=== PATIENT | male | born 1960 | race African-American/Black ===

== ENCOUNTER 2020-01-23 17:38 | Outpatient (REF) | payer MEDICARE, MEDICAID, SELFPAY | END 2020-01-23 17:39 | disposition home or self-care (01) | LOC: HO.LAB 17:38 | PROVIDERS: PCP Family Medicine; Visit Provider Internal Medicine | DX: Z20.828 Contact with and (suspected) exposure to other viral communicable diseases (principal) | CPT/HCPCS: U0003 ==

== ENCOUNTER 2020-01-29 11:24 | Outpatient (REF) | payer MEDICARE, SELFPAY | END 2020-01-29 11:25 | disposition home or self-care (01) | LOC: HO.LAB 11:24 | PROVIDERS: PCP Family Medicine; Visit Provider Internal Medicine | DX: Z20.828 Contact with and (suspected) exposure to other viral communicable diseases (principal) | CPT/HCPCS: C9803; U0003 ==

== ENCOUNTER 2020-02-05 11:14 | Outpatient (REF) | payer MEDICARE, SELFPAY | END 2020-02-05 11:15 | disposition home or self-care (01) | LOC: HO.LAB 11:14 | PROVIDERS: Visit Provider Internal Medicine | DX: Z20.828 Contact with and (suspected) exposure to other viral communicable diseases (principal) | CPT/HCPCS: C9803; U0003 ==

== ENCOUNTER 2020-02-24 13:23 | Emergency (ER) | payer MEDICARE, MEDICAID, SELFPAY ==
[2020-02-24 14:07] VITALS: BP 151/89; PULSE 67; RESP 16; TEMP 36.7; O2SAT 98; BMI 33.2
--- NOTE | 2020-02-24 14:21 | ED.GENADULT ---
HPI - General Adult General Chief complaint: General Medical Stated complaint: STD check Time Seen by Provider: 02/24/20 13:47 Source: patient Mode of arrival: ambulatory Limitations: no limitations History of Present Illness HPI narrative: Patient presents to ED for penile discharge. patient states he had unprotected sex last week and then the past 3 days notice some dysuria and penile discharge. Patient denies ever having testicular pain, abdominal pain, penile lesions, flank pain, fever, chills, hematuria, nausea, or vomiting. Related Data Allergies Allergy/AdvReac Type Severity Reaction Status Date / Time risperidone [From RISPERDAL] Allergy Severe SHORTNESS Unverified 12/11/19 19:43 OF BREATH Review of Systems Review of Systems: Yes all other systems are reviewed and are negative Constitutional: Constitutional: Reports as per HPI and Reports no additional constitutional complaints Eyes: Eyes: Reports as per HPI and Reports no additional eye complaints ENT: Reports system reviewed and no additional complaints, except as documented and Reports as per HPI Cardiovascular: Cardiovascular: Reports as per HPI and Reports no additional cardiovascular complaints Respiratory: Respiratory: Reports as per HPI and Reports no additional respiratory complaints Gastrointestinal: Gastrointestinal: Reports as per HPI, Reports no additional gastrointestinal complaints, Denies abdominal pain, Denies nausea and Denies vomiting Genitourinary: Genitourinary: Reports no additional male genitourinary complaints, Reports as per HPI, Denies genital lesions, Denies genital pain, Reports dysuria, Denies flank pain, Denies painful ejaculations, Reports penile discharge, Denies testicular mass, Denies testicular pain and Denies urinary frequency Musculoskeletal: Musculoskeletal: Reports no additional musculoskeletal complaints and Reports as per HPI Neurologic: Reports system reviewed and no additional complaints, except as documented and Reports as per HPI Psychiatric: Psychiatric: Reports no additional psychiatric complaints and Reports as per HPI [facility] Past Medical History Medical History HTN (hypertension) Social History Social History Advance Directives: No Advance Directives Information Provided: No Physical Exam Vital Signs: Vital Signs: Last Vital Signs Temp 98.1 F 02/24/20 14:07 Pulse 67 02/24/20 14:07 Resp 16 02/24/20 14:07 BP 151/89 H 02/24/20 14:07 Pulse Ox 98 02/24/20 14:07 Body Mass Index 33.2 Const: General: cooperative, healthy appearing, comfortable, no acute distress, well developed, alert, awake and Physically active; No acute distress HENMT: Head: Yes normal to inspection and Yes No palpable skull fracture present Eyes: General: appearance normal, both eyes and all related structures Neck: Neck: Yes normal visual inspection, Yes full ROM, Yes no lymphadenopathy, Yes no meningeal signs, Yes trachea midline, Yes supple and No tender Chest: Chest palpation & inspection: normal inspection of the chest, normal palpation of entire chest wall and no localized rib tenderness Resp: Effort & Inspection: normal respiratory effort and able to speak in complete sentences Auscultation: clear to auscultation bilaterally Cardio: Jugular venous distension: no JVD Heart sounds: S1 normal heart sound present and S2 normal heart sound present GI: Inspection: Yes normal to inspection and No abdominal wall ecchymosis Palpation (GI): Soft to palpation, not firm, nontender, no guarding and not rigid : General: No CVA tenderness and Yes no CVA tenderness Male General Exam: Yes normal external exam, No erythema, No hernia, No inguinal lymphadenopathy, No lacerations, No Genital lesions present, No perineal induration and No tenderness Penis: normal penis, not edematous, not erythematous, no masses, no nodules, no papules, no pustules, no vesicles, no swelling, no ulcerations and No Genital lesions present Meatus: meatus normal Scrotum: scrotum normal, cremasteric reflex present, no ecchymosis, not edematous, not erythematous, testes descended bilaterally, no hydroceles, no inguinal hernias, no masses, no scrotal swelling, no spermatoceles, no ulcerations and no varicoceles Testes: Testes normal Back/Spine/Pelvis: Back: no CVA tenderness, No CVA tenderness and No back tenderness Neuro: General: no meningeal signs Extrem: General: Yes normal to inspection and Yes full ROM Psych: Appearance: grossly normal, well kempt and not disheveled Course Course Course Narrative: patient will have urinalysis and chlamydia/gonorrhea urine sent. Presently history physical exam does not indicate syphilis or herpes. Patient will be treated empirically for gonorrhea chlamydia. Reevaluation(s) Reevaluation #1: UA negative for UTI. patient does not have any flank pain, abdominal pain, nausea, vomiting, fever, or chills to indicate kidney stones. Time: 15:11 Medical Decision Making MDM Narrative Medical decision making narrative: STI exposure Lab Data Labs: Lab Results 02/24/20 Range/Units 14:32 Urine Color YELLOW Urine Appearance CLEAR Urine pH 7.0 (5.0-8.0) Ur Specific [place] 1.020 (1.005-1.025) Urine Protein TRACE (NEG-TRACE) MG/DL Urine Glucose (UA) NEG (NEG) MG/DL Urine Ketones 5 (NEG) MG/DL Urine Blood 1+ H (NEG) Urine Nitrite NEG (NEG) Ur Leukocyte Esterase NEG (NEG) Urine RBC 1-4 (0) /HPF Urine WBC 0-2 (0-4) /HPF Ur Squamous Epith Cells TRACE /LPF Urine Bacteria NONE /LPF Discharge Plan Discharge Clinical Impression: Dysuria Patient Disposition: Home, Self-Care Instructions: Dysuria (ED) Additional Instructions: return to the ED immediately for abdominal pain, testicular pain, bloody urine, flank pain, fever, chills, penile lesions, or any other concerning symptoms. Referrals: Omaira Chang MD [Primary Care Provider] - 2 days ( Dysuria.) Interventions: ED Discharge Assessment Last Done: 02/24/20 15:41 Discharge Date/Time: 02/24/20 15:41 Print Language: Nigerian
[2020-02-24 14:43] LABS: Glucose Urine UA NEG (NEG); Leukocyte Esterase Urine NEG (NEG); Nitrite Urine NEG (NEG); Urine Blood 1+ (NEG); Urine Ketones 5 MG/DL (NEG); Urine Protein TRACE MG/DL (NEG-TRACE)
[2020-02-24 14:49] LABS: Appearance Urine CLEAR; Color Urine YELLOW
[2020-02-24 15:08] LABS: Squamous Epithelial Cell Urine TRACE /LPF; WBC Urine 0-2 /HPF (0-4)
[2020-02-24] MEDS: cefTRIAXone sodium 250 MG, Lidocaine HCl 1 % MPF 0.9 ML IM (15:24)
[2020-02-24] MEDS: Azithromycin 500 MG TABLET 1000 MG PO (15:24)
[2020-03-01 14:57] LABS: CT PCR NOT DETECTED (Not Detect.); NG PCR NOT DETECTED (Not Detect.)
== END 2020-02-24 15:41 | disposition home or self-care (01) ==
PROVIDERS: Physician Assistant; Emergency Provider Emergency Medicine; PCP Family Medicine
DX: R30.0 Dysuria (principal); Z20.2 Contact with and (suspected) exposure to infections with a predominantly sexual mode of transmission; I10 Essential (primary) hypertension
CPT/HCPCS: 81001; 87491; 87591; 96372; 99283; 99284; J0696

== ENCOUNTER 2020-02-26 16:24 | Outpatient (REF) | payer MEDICARE, SELFPAY | END 2020-02-26 16:25 | disposition home or self-care (01) | LOC: HO.LAB 16:24 | PROVIDERS: Visit Provider Internal Medicine | DX: Z20.828 Contact with and (suspected) exposure to other viral communicable diseases (principal) | CPT/HCPCS: C9803; U0003 ==

== ENCOUNTER 2020-03-05 09:42 | Emergency (ER) | payer MEDICARE, MEDICAID, SELFPAY ==
[2020-03-05 09:59] VITALS: BP 123/81; PULSE 79; RESP 16; TEMP 37.1; O2SAT 98; BMI 33.2
--- NOTE | 2020-03-05 10:18 | ED.GENADULT ---
HPI - General Adult General Chief complaint: Back Pain/Injury Stated complaint: foot pain Time Seen by Provider: 03/05/20 10:10 Source: patient Mode of arrival: ambulatory Limitations: no limitations History of Present Illness HPI narrative: 60 y/o male with history of chronic back pain, neuropathy, HTN, kidney stones who presents to ER with acute on chronic mid-low back pain and bilateral non-traumatic burning foot pain L>R. He was started on Gabapentin 100 mg TID without improvement. He is in transition between a new PCP and has an appointment with a new group next . He denies trauma or injury to his back or his feet. He has had this pain for months. It is worse at night and causing him difficulty sleeping. MD complaint: back pain, foot pain Onset (ago): month(s) (8) Location: back, left, right and lower extremity Radiation: non-radiation Severity: moderate Severity scale (1-10): 7 Quality: burning and aching Pain Consistency: constant Relieving factors: none Exacerbating factors: movement Associated symptoms: denies other symptoms Treatments prior to arrival: none Related Data Previous Rx's Medication Instructions Recorded cyclobenzaprine 10 mg PO TID PRN #12 tab 03/05/20 gabapentin 300 mg PO TID #30 cap 03/05/20 lidocaine [Lidoderm] 1 patch TOPICAL DAILY #15 ea 03/05/20 Allergies Allergy/AdvReac Type Severity Reaction Status Date / Time risperidone [From RISPERDAL] Allergy Severe SHORTNESS Unverified 12/11/19 19:43 OF BREATH Review of Systems Review of Systems: Constitutional: No Fever, No Chills Cardiovascular: No Chest Pain, No SOB, No Orthopnea, No Edema Respiratory: No Cough, No Sputum, No Wheezing, No dyspnea Gastrointestinal: No Nausea, No Vomiting, No Diarrhea, No abdominal Pain Musculoskeletal: + joint pain, No Myalgias Skin: No Skin Lesions, No rash Neuro: No Weakness, No Numbness, No Dizziness, No Headache PMFSH Past Medical History Attestation statement: The following information was validated with the patient. Medical History HTN (hypertension) Social History Social History Advance Directives: No Advance Directives Information Provided: No Physical Exam Vital Signs: Vital Signs: Last Vital Signs Temp 98.7 F 03/05/20 09:59 Pulse 79 03/05/20 09:59 Resp 16 03/05/20 09:59 BP 123/81 03/05/20 09:59 Pulse Ox 98 03/05/20 09:59 Body Mass Index 33.2 Appearance: Alert. Oriented X3. No acute distress. HEENT: normal inspection Neck: Normal inspection. Neck supple. CVS: Normal heart rate and rhythm. Pulses normal. Respiratory: No respiratory distress. Breath sounds normal. Abdomen: Soft and nontender. +BS x4 Skin: Skin warm and dry. Normal skin color. Normal skin turgor. No rashes. Back: low thoracic and upper lumbar soft tissue tenderness bilateral, paraspinal muscle spasm, no vertebral tenderness, normal ROM. Extremities: No lower extremity edema. Neuro: Oriented X 3. No motor deficit. No sensory deficit. Ambulates with steady giat Course Course Course Narrative: 60 y/o male presenting with acute on chronic back and and foot pain. No injuries, no need for imaging at this time. He is in between PCP's and has an appointment next week. His foot pain is neuropathic in nature, minimal relief with lose dose gabapentin. Will increase the dose for now until he can be evaluated by PCP. Will give muscle relaxer for back pain. Exercises provided. He agrees to f/u with PCP for further management of his chronic issues. Medical Decision Making Lab Data Labs: Lab Results 03/05/20 Range/Units 10:24 POC Glucose 124 H (60-115) mg/dL Discharge Plan Discharge Clinical Impression: Neuropathy Chronic back pain Qualifiers: Back pain location: low back pain Back pain laterality: bilateral Sciatica presence: without sciatica Qualified Code(s): M54.5 - Low back pain Patient Disposition: Home, Self-Care Instructions: Peripheral Neuropathy (ED), Back Pain (ED), Lower Back Exercises (ED) Additional Instructions: Your foot pain is likely due to neuropathy. We will increase your Gabapentin to 300 mg three times per day until you can be evaluated by your new Primary Care Doctor next week. Start taking cyclobenzaprine as needed for back pain. Use ice and/or heat to your back as needed for pain. Limit bending, lifting >10 lbs and twisting motions. It is important that you follow up with your doctor for further management of these chronic issues. You would likely benefit from Physical Therapy. Prescriptions: New gabapentin 300 mg capsule 300 mg PO TID Qty: 30 RF: 0 cyclobenzaprine 10 mg tablet 10 mg PO TID PRN (Reason: muscle spasm) Qty: 12 RF: 0 lidocaine [Lidoderm] 5 % adhesive patch,medicated 1 patch topical DAILY Qty: 15 RF: 0
[2020-03-05 10:27] LABS: Glucose, Whole Blood 124 mg/dL (60-115)
== END 2020-03-05 10:58 | disposition home or self-care (01) ==
PROVIDERS: Emergency Provider Emergency Medicine; PCP Family Medicine
DX: M54.5 Low back pain (principal); Z79.899 Other long term (current) drug therapy
CPT/HCPCS: 82947; 99283

== ENCOUNTER 2020-05-12 11:34 | Emergency (ER) | payer MEDICARE, MEDICAID, SELFPAY ==
--- NOTE | ~2020-05-12 | XR_ITS ---
EXAMINATION: XR HAND, LEFT CLINICAL INFORMATION: Pain and swelling status post injury COMPARISON: None TECHNIQUE: 3 views of the left hand of the left hand. FINDINGS: There is a displaced fracture base of the first distal phalanx with dorsal lateral displacement of the major fracture fragments by approximately 7 mm. I do not see bony union of fracture fragments and this may represent an acute or subacute injury. There is some associated soft tissue swelling. No acute fracture or dislocation is noted in the marked site of injury involving the fourth finger. XR/XR hand LT min 3V IMPRESSION: Intra-articular displaced fracture of the left first distal phalanx.
[2020-05-12 14:07] VITALS: BP 135/74; PULSE 68; RESP 16; TEMP 37.4; O2SAT 99; BMI 32.5
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
== END 2020-05-12 16:00 | disposition home or self-care (01) ==
PROVIDERS: Emergency Provider Emergency Medicine
DX: S62.522A Displaced fracture of distal phalanx of left thumb, initial encounter for closed fracture (principal); M79.645 Pain in left finger(s); I10 Essential (primary) hypertension; Y04.8XXA Assault by other bodily force, initial encounter; Y93.9 Activity, unspecified; Y92.009 Unspecified place in unspecified non-institutional (private) residence as the place of occurrence of the external cause; Y99.9 Unspecified external cause status; Z79.899 Other long term (current) drug therapy
CPT/HCPCS: 73130; 99283

== ENCOUNTER 2020-07-17 16:10 | Emergency (ER) | payer MEDICARE, MEDICAID, SELFPAY ==
[2020-07-17 16:55] VITALS: BP 137/68; PULSE 66; RESP 16; TEMP 36.7; O2SAT 100; BMI 31.3
--- NOTE | 2020-07-17 17:08 | ED.SKABFB ---
HPI - Skin/Abscess/Foreign Bdy General Chief complaint: Skin/Abscess/Foreign Body Stated complaint: finger infection Time Seen by Provider: 07/17/20 17:07 Source: patient Mode of arrival: ambulatory Limitations: no limitations History of Present Illness HPI narrative: Right ring finger swelling at the lateral aspect for the past 4 days worsened over past 24 hours. Onset (ago): day(s) Tetanus up to date: yes Location: R hand (Ring finger) Severity: moderate Pain Consistency: constant Exacerbating factors: none and other (Palpation) Context: none Associated symptoms: denies other symptoms Treatments prior to arrival: none Related Data Previous Rx's Medication Instructions Recorded cyclobenzaprine 10 mg PO TID PRN #12 tab 03/05/20 gabapentin 300 mg PO TID #30 cap 03/05/20 lidocaine [Lidoderm] 1 patch TOPICAL DAILY #15 ea 03/05/20 oxycodone 5 mg PO Q8H PRN #10 cap 05/12/20 doxycycline monohydrate 100 mg PO BID #14 cap 07/17/20 ibuprofen 800 mg PO Q8H PRN #14 tab 07/17/20 Allergies Allergy/AdvReac Type Severity Reaction Status Date / Time risperidone [From RISPERDAL] Allergy Severe SHORTNESS Verified 05/12/20 14:07 OF BREATH Review of Systems Review of Systems: Constitutional: No Weight loss, No Fever, No Chills, No Night Sweats, No Fatigue, No Malaise ENT/Mouth: No Hearing loss, No Ear Pain, No Nasal Congestion, No Sinus Pain, No Hoarseness, No sore throat, No Rhinorrhea, No Swallowing Difficulty Eyes: Negative Cardiovascular: Negative Respiratory: Negative Gastrointestinal: Negative Genitourinary: Negative Musculoskeletal: No joint pain, No Myalgias, No Joint Swelling Skin: No Skin Lesions, No rash , as noted per HPI Neuro: Negative Psych: Negative Heme/Lymph: No Bruising, No Bleeding,No Lymphadenopathy Endocrine: No Polyuria, No Polydipsia, No Temperature Intolerance Yes all other systems are reviewed and are negative [facility] Past Medical History Medical History HTN (hypertension) Social History Social History Advance Directives: No Advance Directives Information Provided: No Physical Exam Vital Signs: Vital Signs: Last Vital Signs Temp 98.1 F 07/17/20 16:55 Pulse 66 07/17/20 16:55 Resp 16 07/17/20 16:55 BP 137/68 07/17/20 16:55 Pulse Ox 100 07/17/20 16:55 Body Mass Index 31.3 Reviewed Const: General: cooperative and healthy appearing; No acute distress or intoxicated appearing Nutritional Appearance: average body habitus Orientation/consciousness: patient oriented x3 Resp: Effort & Inspection: normal respiratory effort Cardio: Jugular venous distension: no JVD Skin: General skin exam: no rashes or lesions noted Neuro: General: patient oriented x3 Extrem: General: Yes normal to inspection Hand/finger images: 1. Right ring finger with moderate-size paronychia. Procedures Abscess I/D Site: other (Right ring finger) Side (if applicable): right Technique: needle aspiration Amount of fluid expressed (mL): 2 Complications: other (Tolerated very well declined digital block/local anesthesia.) Discharge Plan Discharge Clinical Impression: Paronychia Patient Disposition: Home, Self-Care Instructions: Paronychia (ED) Additional Instructions: Warm compresses Epson salt soaks Take antibiotic as prescribed Return if any concerns or worsening symptoms including more swelling, redness, fever, hand swelling or streaking away from the site. Otherwise follow up with her primary care doctor in 1 week Thank you Prescriptions: New doxycycline monohydrate 100 mg capsule 100 mg PO BID Qty: 14 RF: 0 ibuprofen 800 mg tablet 800 mg PO Q8H PRN (Reason: pain) Qty: 14 RF: 0 No Action gabapentin 300 mg capsule 300 mg PO TID Qty: 30 RF: 0 cyclobenzaprine 10 mg tablet 10 mg PO TID PRN (Reason: muscle spasm) Qty: 12 RF: 0 lidocaine [Lidoderm] 5 % adhesive patch,medicated 1 patch topical DAILY Qty: 15 RF: 0 oxycodone 5 mg capsule 5 mg PO Q8H PRN (Reason: pain) Qty: 10 RF: 0
[2020-07-17] MEDS: Ibuprofen 800 MG TABLET PO (17:32)
== END 2020-07-17 17:46 | disposition home or self-care (01) ==
PROVIDERS: Emergency Provider Emergency Medicine Emergency Medical Services
DX: L03.011 Cellulitis of right finger (principal); I10 Essential (primary) hypertension
CPT/HCPCS: 10060; 99284

== ENCOUNTER 2020-09-10 15:11 | Emergency (ER) | payer MEDICARE, MEDICAID, SELFPAY ==
[2020-09-10 16:00] VITALS: BP 115/74; PULSE 73; RESP 18; TEMP 36.4; O2SAT 99; BMI 30.8
[2020-09-10] MEDS: Lidocaine HCl 1 % MPF 5 ML VIAL SUBCUT (16:23)
--- NOTE | 2020-09-10 17:00 | ED_ITS ---
HPI - Extremity Problem General Chief complaint: Extremity Injury, Upper Stated complaint: thumb infection Time Seen by Provider: 09/10/20 16:10 Source: patient Mode of arrival: ambulatory Limitations: no limitations History of Present Illness HPI Narrative: 60-year-old male presenting to the ED with mild erythema and swelling and pain to the left thumb for the past few days worse today. Reports that he had a broken left thumb in April and has been having therapy. Reports that he does not have range of motion since April and is not worsened today. He denies any fevers or any new injuries. Denies any other symptoms complaints or concerns at this time. Related Data Previous Rx's Medication Instructions Recorded cyclobenzaprine 10 mg PO TID PRN #12 tab 03/05/20 gabapentin 300 mg PO TID #30 cap 03/05/20 lidocaine [Lidoderm] 1 patch TOPICAL DAILY #15 ea 03/05/20 oxycodone 5 mg PO Q8H PRN #10 cap 05/12/20 doxycycline monohydrate 100 mg PO BID #14 cap 07/17/20 ibuprofen 800 mg PO Q8H PRN #14 tab 07/17/20 acetaminophen [Tylenol Extra 1,000 mg PO QID PRN #14 tab 09/10/20 Strength] cephalexin 500 mg PO Q12H 10 Days #20 cap 09/10/20 doxycycline hyclate 100 mg PO BID 10 Days #20 tab 09/10/20 ibuprofen 800 mg PO Q8H PRN #14 tab 09/10/20 oxycodone 5 mg PO BID PRN #10 tab 09/10/20 Allergies Allergy/AdvReac Type Severity Reaction Status Date / Time risperidone [From RISPERDAL] Allergy Severe SHORTNESS Verified 05/12/20 14:07 OF BREATH Review of Systems Review of Systems: Constitutional : No changes in activity, No lethargy, No recent prior head injury, No agitation, No increased fussiness ENT/Mouth : No Ear Pain, No Nasal discharge/drainage Eyes: No Eye Pain, No Swelling, No Redness, No Foreign Body, No Vision Changes Cardiovascular : No Chest Pain, No SOB Respiratory : No Cough Gastrointestinal : No Nausea, No Vomiting, No abdominal Pain Genitourinary : No Dysuria, No Urinary Frequency, No Urinary Incontinence, No Urgency, No Flank Pain Musculoskeletal : + joint pain, No neck stiffness, No back pain/injury Skin : No lacerations Neuro : No unsteady gait, No Paresthesias, No Loss of Consciousness, No altered mental status, No Headache Yes all other systems are reviewed and are negative [facility] Past Medical History Attestation statement: The following information was validated with the patient. Medical History HTN (hypertension) Social History Social History Advance Directives: No Advance Directives Information Provided: Yes Physical Exam Vital Signs: Vital Signs: Last Vital Signs Temp 97.6 F 09/10/20 16:00 Pulse 73 09/10/20 16:00 Resp 18 09/10/20 16:00 BP 115/74 09/10/20 16:00 Pulse Ox 99 09/10/20 16:00 Body Mass Index 30.8 vital signs have been reviewed as normal and appeared to be correct. Blood pressure normal. Heart rate normal. Respiration rate normal. Temperature normal. Oxygen saturation normal. Appearance: Alert. Oriented X3. No acute distress. Head: Normal external exam. Normocephalic. Atraumatic. Eyes: PERRLA. EOMI. Conjunctiva and sclera normal. Eyelids normal. ENT: Pharynx normal. Uvula midline. Moist mucous membranes. Neck: Normal inspection. Neck supple. FROM. No adenopathy. Thyroid Normal. No meningeal signs. No neck mass noted. CVS: Normal heart rate and rhythm. Heart sound normal. Pulses normal throughout. No murmurs/rales/gallops. Respiratory: No respiratory distress. Painless inspiration. Breath sounds normal. No wheezes/rales/rhonchi noted. Chest nontender. No accessory muscle usage noted or decreased air movement noted. Back: Full range of motion noted. No rashes/lesion/induration/fluctuance or signs of infection noted. Skin: Skin warm and dry. Normal skin color. Normal skin turgor. No rashes/lesions/lacerations noted. Extremities: To left thumb ulnar aspect patient has mild soft tissue swelling/erythema to the aspect of the nail consistent with paronychia. Otherwise all other Extremities exhibit normal range of motion. and nontender. Neuro: Oriented X 3. No motor deficit. No sensory deficit. Reflexes normal. Normal steady gait. No focal neuro deficits noted. Vascular: + radial pulses/+ 2 distal pedal pulses/+2 dorsalis pedis b/l. Normal cap refill. No cyanosis noted to upper extremity nails and lower extremity toes nails. Course Course Course Narrative: Patient is now status post I and D of paronychia to left thumb. Patient tolerated the procedure well. No complications. Will DC home with antibiotics and symptomatic treatment along with instructions return if any new or worsening symptoms and to follow up with primary care provider. Patient understands agrees with this plan. Procedures Abscess I/D Site: hand (Left thumb paronychia) Local Anesthetic: lidocaine 1% Amount of anesthesia used (mL): 2 Technique: needle aspiration and incised with blade Amount of fluid expressed (mL): 2 Sent for culture/gram staining?: No Irrigation: Yes Packing used?: none MDM - Extremity (Nontraumatic) Medical Records Attestation: I reviewed the patient's medical records. Discharge Plan Discharge Clinical Impression: Paronychia Patient Disposition: Home, Self-Care Instructions: Paronychia (ED) Prescriptions: New doxycycline hyclate 100 mg tablet 100 mg PO BID 10 Days Qty: 20 RF: 0 ibuprofen 800 mg tablet 800 mg PO Q8H PRN (Reason: pain) Qty: 14 RF: 0 acetaminophen [Tylenol Extra Strength] 500 mg tablet 1,000 mg PO QID PRN (Reason: fever or pain) Qty: 14 RF: 0 oxycodone 5 mg tablet 5 mg PO BID PRN (Reason: pain) Qty: 10 RF: 0 cephalexin 500 mg capsule 500 mg PO Q12H 10 Days Qty: 20 RF: 0 No Action gabapentin 300 mg capsule 300 mg PO TID Qty: 30 RF: 0 cyclobenzaprine 10 mg tablet 10 mg PO TID PRN (Reason: muscle spasm) Qty: 12 RF: 0 lidocaine [Lidoderm] 5 % adhesive patch,medicated 1 patch topical DAILY Qty: 15 RF: 0 doxycycline monohydrate 100 mg capsule 100 mg PO BID Qty: 14 RF: 0 ibuprofen 800 mg tablet 800 mg PO Q8H PRN (Reason: pain) Qty: 14 RF: 0 oxycodone 5 mg capsule 5 mg PO Q8H PRN (Reason: pain) Qty: 10 RF: 0 Referrals: Paula Jean MD [Physician] - 2 days Print Language: New Zealander
== END 2020-09-10 17:38 | disposition home or self-care (01) ==
PROVIDERS: Emergency Provider Internal Medicine; PCP Physician Assistant
DX: L03.012 Cellulitis of left finger (principal); I10 Essential (primary) hypertension; Z79.899 Other long term (current) drug therapy
CPT/HCPCS: 10060; 99283; 99284

== ENCOUNTER 2021-07-29 11:00 | Emergency (ER) | payer MEDICARE, MEDICAID, SELFPAY ==
[2021-07-29 11:19] VITALS: BP 127/80; PULSE 59; RESP 20; TEMP 37; O2SAT 97; BMI 29.9
[2021-07-29] MEDS: predniSONE 20 MG TABLET 60 MG PO (12:41)
[2021-07-29] MEDS: Ketorolac Tromethamine 30 MG/ML VIAL IM (12:41)
--- NOTE | 2021-07-29 14:00 | ED_ITS ---
HPI - Back Pain/Injury General Chief Complaint: Back Pain/Injury Stated Complaint: Back pain Source: patient Mode of arrival: ambulatory Limitations: no limitations History of Present Illness HPI Narrative: 61-year-old male with history of chronic back pain presents to ED for back pain exacerbation. Patient denies any recent trauma, abdominal pain, dysuria, nausea, vomiting, flank pain, fever, chills, hematuria, or testicular pain. Patient has follow-up with spine surgeon. Patient denies any urinary/bowel incontinence. Related Data Previous Rx's Medication Instructions Recorded cyclobenzaprine 10 mg tablet 10 mg PO TID PRN #12 tab 03/05/20 gabapentin 300 mg capsule 300 mg PO TID #30 cap 03/05/20 lidocaine 5 % topical patch 1 patch TOPICAL DAILY #15 ea 03/05/20 (Lidoderm) oxycodone 5 mg capsule 5 mg PO Q8H PRN #10 cap 05/12/20 doxycycline monohydrate 100 mg 100 mg PO BID #14 cap 07/17/20 capsule ibuprofen 800 mg tablet 800 mg PO Q8H PRN #14 tab 07/17/20 acetaminophen 500 mg tablet 1,000 mg PO QID PRN #14 tab 09/10/20 (Tylenol Extra Strength) cephalexin 500 mg capsule 500 mg PO Q12H 10 Days #20 cap 09/10/20 doxycycline hyclate 100 mg tablet 100 mg PO BID 10 Days #20 tab 09/10/20 ibuprofen 800 mg tablet 800 mg PO Q8H PRN #14 tab 09/10/20 oxycodone 5 mg tablet 5 mg PO BID PRN #10 tab 09/10/20 Allergies Allergy/AdvReac Type Severity Reaction Status Date / Time risperidone [From RISPERDAL] Allergy Severe SHORTNESS Verified 05/12/20 14:07 OF BREATH Review of Systems Review of Systems: Back pain Yes all other systems are reviewed and are negative ON LICENSE OF [facility] Past Medical History Medical History HTN (hypertension) Social History Social History Advance Directives: No Advance Directives Information Provided: No Physical Exam Vital Signs: Vital Signs: Last Vital Signs Temp 98.6 F 07/29/21 11:19 Pulse 59 07/29/21 11:19 Resp 20 07/29/21 11:19 BP 127/80 07/29/21 11:19 Pulse Ox 97 07/29/21 11:19 BMI result Body Mass Index 29.9 Const: General: cooperative, healthy appearing, comfortable, no acute distress, well developed, alert, awake and Physically active Orientation/consciousness: patient oriented x3 HEENT: Head: Yes normal to inspection, Yes No palpable skull fracture present, Yes normocephalic, Yes atraumatic and No abrasion Eyes: General: appearance normal, both eyes and all related structures Neck: Neck: Yes normal visual inspection, Yes full ROM, Yes no lymphadenopathy, Yes no meningeal signs, Yes trachea midline, Yes supple, No anterior neck swelling and No tender Chest: Chest palpation & inspection: normal inspection of the chest and normal palpation of entire chest wall Resp: Effort & Inspection: normal respiratory effort and able to speak in complete sentences Auscultation: clear to auscultation bilaterally Cardio: Jugular venous distension: no JVD Heart sounds: S1 normal heart sound present and S2 normal heart sound present GI: Inspection: Yes normal to inspection and No abdominal wall ecchymosis Palpation (GI): Soft to palpation, not firm, nontender, no guarding and not rigid : General: No CVA tenderness and Yes no CVA tenderness Back/Spine/Pelvis: Back: no CVA tenderness, No CVA tenderness and back tenderness (Mild lumbar spine tenderness) Skin: General skin exam: no rashes or lesions noted and elasticity normal Neuro: General: patient oriented x3, gait normal, no meningeal signs and CN's II-XI intact bilaterally Cranial nerves: Yes CN's II-XII intact bilaterally Extrem: General: Yes normal to inspection and Yes full ROM Psych: Appearance: grossly normal, well kempt and not disheveled Course Course Course Narrative: Back pain. No need for repeat imaging. Reevaluation(s) Reevaluation #1: PATIENT RECEIVED TORADOL AND STEROIDS. WENT TO RE-EVALUATE PATIENT AND PATIENT WAS NO LONGER IN THE ROOM. PATIENT ELOPED BEFORE RECEIVING DISCHARGE PAPERS FOR Time: 14:40 Discharge Plan Discharge Clinical Impression: Lumbar radiculopathy Patient Disposition: Elopement Prescriptions: No Action gabapentin 300 mg capsule 300 mg PO TID Qty: 30 0RF cyclobenzaprine 10 mg tablet 10 mg PO TID PRN (Reason: muscle spasm) Qty: 12 0RF lidocaine [Lidoderm] 5 % adhesive patch,medicated 1 patch topical DAILY Qty: 15 0RF Rx Instructions: leave on most painful area for up to 12 hrs doxycycline monohydrate 100 mg capsule 100 mg PO BID Qty: 14 0RF ibuprofen 800 mg tablet 800 mg PO Q8H PRN (Reason: pain) Qty: 14 0RF oxycodone 5 mg capsule 5 mg PO Q8H PRN (Reason: pain) Qty: 10 0RF doxycycline hyclate 100 mg tablet 100 mg PO BID 10 Days Qty: 20 0RF ibuprofen 800 mg tablet 800 mg PO Q8H PRN (Reason: pain) Qty: 14 0RF acetaminophen [Tylenol Extra Strength] 500 mg tablet 1,000 mg PO QID PRN (Reason: fever or pain) Qty: 14 0RF oxycodone 5 mg tablet 5 mg PO BID PRN (Reason: pain) Qty: 10 0RF cephalexin 500 mg capsule 500 mg PO Q12H 10 Days Qty: 20 0RF Discharge Date/Time: 07/29/21 15:09
== END 2021-07-29 15:09 | disposition left against medical advice (07) ==
PROVIDERS: Emergency Provider Emergency Medicine Emergency Medical Services; PCP Physician Assistant
DX: M54.16 Radiculopathy, lumbar region (principal); I10 Essential (primary) hypertension
CPT/HCPCS: 96372; 99283; 99284; J1885

== ENCOUNTER 2021-09-12 10:56 | Emergency (ER) | payer MEDICARE, MEDICAID, SELFPAY ==
[2021-09-12 11:07] VITALS: BP 149/89; PULSE 54; RESP 18; TEMP 36.3; O2SAT 100; BMI 29.7
--- NOTE | 2021-09-12 11:17 | ED_ITS ---
HPI - Extremity Problem General Chief complaint: Extremity Injury, Upper Stated complaint: r hand pain Time Seen by Provider: 09/12/21 11:10 Source: patient Mode of arrival: ambulatory Limitations: no limitations History of Present Illness HPI Narrative: Patient is a 61 year old male presenting to the emergency department today with intermittent right hand swelling and pain. Patient states that for months, his right hand will swell and become painful, then get better the next day. Patient denies any dizziness, lightheadedness, abdominal pain, nausea, vomiting, fever, chills, blurry vision, double vision, loss of vision, chest pain, difficulty breathing, shortness of breath, back pain, night sweats, pain with urination, increased urinary frequency, increased urinary urgency, blood in his urine or stool, syncope or a near syncopal episode, recent trauma or falls, bowel incontinence, bladder incontinence, bowel retention, bladder retention, or any other complaints at this time. MD Complaint: extremity pain Onset (ago): month(s) Pain Consistency: intermittent Location: right and upper extremity (hand) Severity scale (1-10): 2 Quality: aching and dull Radiation: none Relieving factors: nothing Exacerbating factors: nothing Associated symptoms: denies other symptoms Related Data Previous Rx's Medication Instructions Recorded cyclobenzaprine 10 mg tablet 10 mg PO TID PRN muscle spasm #12 03/05/20 tabs gabapentin 300 mg capsule 300 mg PO TID #30 caps 03/05/20 lidocaine 5 % topical patch 1 patch topical DAILY #15 ea 03/05/20 (Lidoderm) oxycodone 5 mg capsule 5 mg PO Q8H PRN pain #10 caps 05/12/20 doxycycline monohydrate 100 mg 100 mg PO BID #14 caps 07/17/20 capsule ibuprofen 800 mg tablet 800 mg PO Q8H PRN pain #14 tabs 07/17/20 acetaminophen 500 mg tablet 1,000 mg PO QID PRN fever or pain 09/10/20 (Tylenol Extra Strength) #14 tabs cephalexin 500 mg capsule 500 mg PO Q12H 10 days #20 caps 09/10/20 doxycycline hyclate 100 mg tablet 100 mg PO BID 09/10/20 Paronychia/cellulitis 10 days #20 tabs ibuprofen 800 mg tablet 800 mg PO Q8H PRN pain #14 tabs 09/10/20 oxycodone 5 mg tablet 5 mg PO BID PRN pain #10 tabs 09/10/20 Allergies Allergy/AdvReac Type Severity Reaction Status Date / Time risperidone [From RISPERDAL] Allergy Severe SHORTNESS Verified 05/12/20 14:07 OF BREATH Review of Systems Constitutional: Constitutional: Reports no additional constitutional complaints, Denies chills, Denies fever(s) and Denies night sweats Eyes: Eyes: Reports no additional eye complaints, Denies blurry vision, Denies change in vision, Denies diplopia, Denies eye discharge, Denies loss of vision and Denies eye pain ENT: Denies dizziness Cardiovascular: Cardiovascular: Reports no additional cardiovascular complaints, Denies chest pain, Denies lightheadedness, Denies Loss of Consciousness and Denies dyspnea Respiratory: Respiratory: Reports no additional respiratory complaints and Denies dyspnea Gastrointestinal: Gastrointestinal: Reports no additional gastrointestinal complaints, Denies abdominal pain, Denies melena, Denies hematochezia, Denies ch franky in bowel habits and Denies change in stool character Genitourinary: Genitourinary: Reports no additional male genitourinary complaints, Denies hematuria, Denies oliguria, Denies difficulty urinating, Denies dysuria, Denies urinary frequency, Denies urinary hesitancy, Denies urinary incontinence and Denies urinary urgency Musculoskeletal: Musculoskeletal: Reports no additional musculoskeletal complaints, Denies numbness and Denies tingling Comments: intermittent right hand pain and swelling Neurologic: Denies dizziness, Denies loss of vision, Denies numbness and Denies tingling Psychiatric: Psychiatric: Reports no additional psychiatric complaints Endocrine: Endocrine: Reports no additional endocrine complaints Hematologic/Lymphatic: Hematologic/Lymphatic: Reports no additional hematologic/lymphatic complaints Allergic/Immunologic: Allergic/Immunologic: Reports no additional allergic/immunologic complaints [facility] Past Medical History Attestation statement: The following information was validated with the patient. Source: old records reviewed Medical History HTN (hypertension) Social History Social History Advance Directives: No Advance Directives Information Provided: No Physical Exam Vital Signs: Vital Signs: Last Vital Signs Temp 97.4 F 09/12/21 11:07 Pulse 54 09/12/21 11:07 Resp 18 09/12/21 11:07 BP 149/89 H 09/12/21 11:07 Pulse Ox 100 09/12/21 11:07 O2 Del Method 09/12/21 11:07 BMI result Body Mass Index 29.7 Const: General: cooperative, no acute distress, alert and awake Nutritional Appearance: well nourished Orientation/consciousness: patient oriented x3 Limitations: no limitations HEENT: Head: Yes normal to inspection and Yes atraumatic Ears: hearing grossly normal bilaterally and external ears normal General nose exam: Normal external nose present, no nasal discharge noted and no epistaxis Face and sinus: Yes normal facial exam, No abrasion and No laceration Mouth: Normal oral and palatal mucosa present, no drooling and no muffled voice Eyes: General: appearance normal, both eyes and all related structures Periorbital: periorbital findings normal Eyelids: Yes eyelids normal Conjunctivae: conjunctivae normal Pupils: Equal, round and reactive pupils present EOM: EOMs intact bilaterally Neck: Neck: Yes normal visual inspection, Yes full ROM and Yes no lymphadenopathy Chest: Chest palpation & inspection: normal inspection of the chest Resp: Effort & Inspection: normal respiratory effort and able to speak in complete sentences Auscultation: clear to auscultation bilaterally Cardio: Rate: regular rate Rhythm: regular rhythm GI: Inspection: Yes normal to inspection Neuro: General: patient oriented x3 and moves all extremities Cranial nerves: Yes Equal, round and reactive pupils present Cognition (Neuro): normal cognition Motor exam (neuro): 5/5 motor strength present throughout Sensory Exam: Normal double simultaneous stimulation for sensation Coordination: [id number] test normal Extrem: General: Yes normal to inspection, Yes full ROM and Yes capillary refill normal Psych: Appearance: grossly normal Mental Status: mental status grossly normal Affect: normal affect Attitude: cooperative Thought process: Normal thought process present Thought content: Normal thought content present Insight: Good insight present (Psych) MDM - Extremity (Nontraumatic) MDM Narrative Medical decision making narrative: Patient is a 61 year old male presenting to the emergency department today with intermittent right hand pain and swelling. Patient's physical exam was unremarkable. I explained my physical exam findings to the patient. I answered all questions asked by the patient. I stressed the importance of the patient taking his medication as prescribed. I stressed the importance of the patient following up with his primary care provider and an orthopedic provider. I stressed the importance of the patient returning to the emergency department immediately if his symptoms were to worsen or if he were to develop any dizziness, shortness of breath, difficulty breathing, chest pain, blurry vision, loss of vision, nausea, vomiting, abdominal pain, fever, chills, back pain, or any other complaints. Patient verbalized agreement and understanding with this treatment plan and discharge. Differential Diagnosis Differential diagnosis: Unlikely herpes zoster (osteoarthritis) Medical Records Attestation: I reviewed the patient's medical records. Discharge Plan Discharge Clinical Impression: Arthritis Patient Disposition: Home, Self-Care Instructions: Osteoarthritis (ED) Additional Instructions: Follow up with your primary care provider and an orthopedic provider. Return to the emergency department immediately if your symptoms worsen or if you develop any dizziness, shortness of breath, difficulty breathing, chest pain, blurry vision, loss of vision, nausea, vomiting, abdominal pain, fever, chills, back pain, or any other complaints. Prescriptions: No Action gabapentin 300 mg capsule 300 mg PO TID Qty: 30 0RF cyclobenzaprine 10 mg tablet 10 mg PO TID PRN (Reason: muscle spasm) Qty: 12 0RF lidocaine [Lidoderm] 5 % adhesive patch,medicated 1 patch topical DAILY Qty: 15 0RF Rx Instructions: leave on most painful area for up to 12 hrs doxycycline monohydrate 100 mg capsule 100 mg PO BID Qty: 14 0RF ibuprofen 800 mg tablet 800 mg PO Q8H PRN (Reason: pain) Qty: 14 0RF oxycodone 5 mg capsule 5 mg PO Q8H PRN (Reason: pain) Qty: 10 0RF doxycycline hyclate 100 mg tablet 100 mg PO BID 10 Days Qty: 20 0RF ibuprofen 800 mg tablet 800 mg PO Q8H PRN (Reason: pain) Qty: 14 0RF acetaminophen [Tylenol Extra Strength] 500 mg tablet 1,000 mg PO QID PRN (Reason: fever or pain) Qty: 14 0RF oxycodone 5 mg tablet 5 mg PO BID PRN (Reason: pain) Qty: 10 0RF cephalexin 500 mg capsule 500 mg PO Q12H 10 Days Qty: 20 0RF Referrals: [facility] [Provider Group] (If pain persists, follow up with an orthopedic provider.) Allyson Gotti PA-C [Primary Care Provider] - Interventions: ED Discharge Assessment Last Done: 09/12/21 12:07 Discharge Date/Time: 09/12/21 12:08 Print Language: [place]
== END 2021-09-12 12:08 | disposition home or self-care (01) ==
PROVIDERS: Emergency Provider Emergency Medicine; PCP Physician Assistant
DX: M19.041 Primary osteoarthritis, right hand (principal); Z79.899 Other long term (current) drug therapy
CPT/HCPCS: 99283

== ENCOUNTER 2021-10-07 13:05 | Outpatient (REF) | payer OTHER, MEDICAID, SELFPAY ==
--- NOTE | ~2021-10-07 | MR_ITS ---
EXAMINATION: MR LUMBAR SPINE WITHOUT CONTRAST CLINICAL INFORMATION: Spinal stenosis with neurogenic claudication. COMPARISON: CT scan of the lumbosacral spine October 2018. TECHNIQUE: MRI of the lumbar spine was obtained using routine sequences without contrast. FINDINGS: VERTEBRAL BODIES AND PARASPINAL STRUCTURES: Vertebral bodies normally aligned with normal height and marrow. Degenerative disc changes present at L3-L4 and L4-L5. There is mild atrophy and fatty infiltration of the paraspinal muscles. CONUS MEDULLARIS AND CAUDA EQUINA: Conus is at the level of L1-L2. Cauda equina normal. SPINAL LEVELS: T12-L1: Normal. L1-L2: Normal. L2-L3: Normal. L3-L4: Minimal hypertrophic changes of the ligamentum flavum and facet arthrosis. Disc desiccation and minimal bulging of the disc. Findings result in mild narrowing of the central canal and neural foramina bilaterally. L4-L5: Disc desiccation with generalized bulging of the disc. Mild hypertrophic changes of the facets and ligamentum flavum. Findings result in mild narrowing of the central canal, moderate narrowing of the right neural foramina and mild narrowing of left neural foramina L5-S1: Normal. MR/MR lumbar spine wo con IMPRESSION: Multilevel spondylosis lumbosacral spine with degenerative changes in the L3-L4 and L4-L5. At L3-L4, there is mild narrowing central canal and neural foramina bilaterally. At L4-L5, there is mild narrowing of the central canal and moderate narrowing of the right neural foramina with mild narrowing of the left neural foramina.
== END 2021-10-07 13:06 | disposition home or self-care (01) ==
LOC: HO.MRI 13:05
PROVIDERS: Absent Provider Physician Assistant; Visit Provider Nurse Practitioner Women's Health
DX: M48.061 Spinal stenosis, lumbar region without neurogenic claudication (principal)
CPT/HCPCS: 72148

== ENCOUNTER 2021-10-26 13:44 | Outpatient (REF) | payer OTHER, MEDICAID, SELFPAY ==
[2021-10-26 13:58] LABS: MANUAL DIFF FLAG NO
[2021-10-26 14:18] LABS: Basophils Percent Auto 1.3 % (0-2); Eosinophils Absolute Auto 0.2 X10*3/uL (0.0-0.4); Eosinophils Percent Auto 7.7 % (0-4); Hemoglobin 12.3 g/dl (14.0-18.0); Lymphocytes Absolute Auto 0.9 X10*3/uL (1.2-4.9); Mean Corpuscular HGB Conc 32.4 g/dl (31.0-36.0); Mean Corpuscular Hemoglobin 25.9 pg (27.0-33.0); Mean Corpuscular Volume 80.2 fL (80.0-98.0); Mean Platelet Volume 9.9 fL (9.4-12.4); Monocytes Absolute Auto 0.2 X10*3/uL (0.1-1.2); Monocytes Percent Auto 7.4 % (2-11); Neutrophils Absolute Auto 1.6 x10*3/uL (2.0-8.3); Neutrophils Percent Auto 52.6 % (45-73); Platelet Count 225 X10*3/uL (160-400); Red Blood Count 4.74 X10*6/uL (4.60-5.80)
[2021-10-26 15:03] LABS: Alanine Aminotransferase 99 U/L (0-40); Albumin Level 4.5 g/dL (3.5-5.0); Alkaline Phosphatase 79 U/L (39-117); Anion Gap 13 (12-20); Aspartate Amino Transferase 70 U/L (5-37); Bilirubin Total 0.9 mg/dL (0.0-1.0); Blood Urea Nitrogen 17 mg/dL (9-16); Calcium 9.2 mg/dL (8.4-10.2); Carbon Dioxide 27 mmol/L (22-29); Chloride 106 mmol/L (96-108); Estimated Glomerular Filt Rate > 60; Gamma Glutamyl Transpeptidase 20 U/L (11-51); Glucose Random 130 mg/dL (60-115); Potassium 4.1 mmol/L (3.3-5.1); Sodium 142 mmol/L (135-145); Total Protein 6.9 g/dL (6.5-8.0)
[2021-10-27 05:05] LABS: HBS Num1 373.08 mIU/mL (0-7.99); HBc Num1 0.05 S/CO (0.00-0.79); HBsAGNum1 0.23 S/CO (0.00-0.99); HIV AB/AG Nonreactive (Nonreactive); HIV Num 1 0.18 S/CO (0.00-0.99); Hepatitis B Core Antibody Nonreactive (Nonreactive); Hepatitis B Surface Antigen Negative (Negative); ~Hepatitis B Surface Antibody REACTIVE (Nonreactive)
[2021-10-28 08:21] LABS: Hepatitis A Antibody IgG REACTIVE (Nonreactive); Hepatitis A Antibody IgM 0.22 Index (0-0.79); ~Hepatitis A Antibody IgG 9.23 S/CO (0.00-0.99); ~Hepatitis A Antibody IgM Nonreactive (Nonreactive)
== END 2021-10-26 13:45 | disposition home or self-care (01) ==
LOC: HO.LAB 13:44
PROVIDERS: PCP Physician Assistant; Visit Provider Registered Nurse
DX: Z11.4 Encounter for screening for human immunodeficiency virus [HIV] (principal); F10.20 Alcohol dependence, uncomplicated
CPT/HCPCS: 36415; 80053; 82977; 85025; 86704; 86706; 86708; 86709; 87340; 87389

== ENCOUNTER 2021-10-27 13:09 | Emergency (ER) | payer MEDICARE, SELFPAY ==
[2021-10-27 13:16] VITALS: BP 143/74; PULSE 61; RESP 16; TEMP 36.7; O2SAT 97; BMI 29.7
--- NOTE | 2021-10-27 14:02 | ED.BACK ---
HPI - Back Pain/Injury General Chief Complaint: General Medical Stated Complaint: Back pain Time Seen by Provider: 10/27/21 13:29 Source: patient Mode of arrival: ambulatory Limitations: no limitations History of Present Illness HPI Narrative: 61-year-old male with a past medical history of chronic back pain after a fall at [facility] years ago presenting to the ED with complaints of acute on chronic lower back pain over the past few weeks worse today. Reports that he recently had an MRI that was ordered by [facility] which she had on 10/07/2021 and brought in his results which revealed multilevel spondylosis lumbosacral spine with degenerative changes in the L3 through L5. Along with mild narrowing central canal and neural foramina bilaterally. There is mild narrowing of the central canal and moderate narrowing of the right neural foramina with mild narrowing of the left neural foramina. He has been on gabapentin provided no symptomatic relief. He has also been taking [id number] Motrin Tylenol no symptomatic relief. He has an appointment with [facility] on November 16 although reports that he is having pain daily and needs something until then. He denies any new falls or trauma, fevers, chills, dizziness, headaches, neck pain/stiffness, trouble swallowing or breathing, chest pain or shortness of breath, flank pain, hematuria, dysuria, abnormal penile discharge, paresthesias, weakness, urinary bowel incontinence or retention, saddle anesthesias, recent falls or trauma or any other symptoms complaints or concerns at this time. MD elicited complaint: back pain Pertinent past history: prior back pain Onset (ago): week(s) Timing: constant and progressively worsening Severity: moderate Similar Symptoms Previously: Yes Quality: sharp, aching, spasming and throbbing Location: lumbar spine Radiation: none Exacerbating factors: movement, supine positioning, sitting upright, walking and lifting Relieving factors: none Context: other (He had a fall [facility] years ago) Associated symptoms: denies other symptoms Related Data Previous Rx's Medication Instructions Recorded cyclobenzaprine 10 mg tablet 10 mg PO TID PRN muscle spasm #12 03/05/20 tabs gabapentin 300 mg capsule 300 mg PO TID #30 caps 03/05/20 lidocaine 5 % topical patch 1 patch topical DAILY #15 ea 03/05/20 (Lidoderm) oxycodone 5 mg capsule 5 mg PO Q8H PRN pain #10 caps 05/12/20 doxycycline monohydrate 100 mg 100 mg PO BID #14 caps 07/17/20 capsule ibuprofen 800 mg tablet 800 mg PO Q8H PRN pain #14 tabs 07/17/20 acetaminophen 500 mg tablet 1,000 mg PO QID PRN fever or pain 09/10/20 (Tylenol Extra Strength) #14 tabs cephalexin 500 mg capsule 500 mg PO Q12H 10 days #20 caps 09/10/20 doxycycline hyclate 100 mg tablet 100 mg PO BID 09/10/20 Paronychia/cellulitis 10 days #20 tabs ibuprofen 800 mg tablet 800 mg PO Q8H PRN pain #14 tabs 09/10/20 oxycodone 5 mg tablet 5 mg PO BID PRN pain #10 tabs 09/10/20 cyclobenzaprine 10 mg tablet 10 mg PO Q8H #14 tabs 10/27/21 naproxen 500 mg tablet 500 mg PO BID PRN pain #14 tabs 10/27/21 oxycodone 5 mg tablet 5 mg PO Q6H PRN pain #14 tabs 10/27/21 prednisone 20 mg tablet 40 mg PO DAILY inflammation 5 days 10/27/21 #10 tabs Allergies Allergy/AdvReac Type Severity Reaction Status Date / Time risperidone [From RISPERDAL] Allergy Severe SHORTNESS Verified 05/12/20 14:07 OF BREATH Review of Systems Review of Systems: Constitutional : No trauma, No Weight loss, No Fever, No Chills, ENT/Mouth : No Hearing loss, No Ear Pain, No Nasal Congestion, No Sinus Pain, No Hoarseness, No sore throat, No Rhinorrhea, No Swallowing Difficulty Cardiovascular : No Chest Pain, No SOB Respiratory : No Cough, No Dyspnea Gastrointestinal : No Nausea, No Vomiting, No Diarrhea, No abdominal Pain, No Hematochezia, No Melena Genitourinary : No Dysuria, No Urinary Frequency, No Hematuria, No Urinary or Bowel Incontinence/retention Musculoskeletal : + Back pain, No neck pain, No joint stiffness, No joint swelling Skin : No Skin Lesions, No rash or signs of infection Neuro : No Weakness, No radiation, No Numbness, No Paresthesias, No headache, no loss of bowel or bladder incontinence, no saddle anesthesia, Focal weakness, No radiation Denies history of IV drug usage. Yes all other systems are reviewed and are negative [facility] Past Medical History Attestation statement: The following information was validated with the patient. Source: old records reviewed and nursing notes reviewed Medical History HTN (hypertension) Social History Social History Advance Directives: No Advance Directives Information Provided: No Physical Exam Vital Signs: Vital Signs: Last Vital Signs Temp 98.1 F 10/27/21 13:16 Pulse 61 10/27/21 13:16 Resp 16 10/27/21 13:16 BP 143/74 H 10/27/21 13:16 Pulse Ox 97 10/27/21 13:16 O2 Del Method 10/27/21 13:16 BMI result Body Mass Index 29.7 vital signs have been reviewed as normal and appeared to be correct. Blood pressure normal. Heart rate normal. Respiration rate normal. Temperature normal. Oxygen saturation normal. Appearance: Alert. Oriented X3. No acute distress. Head: Normal external exam. Normocephalic. Atraumatic. Eyes: PERRLA. EOMI. Conjunctiva and sclera normal. Eyelids normal. ENT: Pharynx normal. Uvula midline. Moist mucous membranes. No trismus noted. No drooling noted. No muffled voice noted. Neck: Normal inspection. Neck supple. FROM. No adenopathy. Thyroid Normal. No meningeal signs. No neck mass noted. CVS: Normal heart rate and rhythm. Heart sound normal. No murmurs noted. Pulses normal throughout. Respiratory: No respiratory distress. Painless inspiration. Breath sounds normal. No wheezes/rales/rhonchi noted. Chest nontender. No accessory muscle usage noted or decreased air movement noted. Abdomen: Soft and nontender. Bowel sounds normal in all 4 quadrants. No distention noted. No organomegaly noted. No visible injury noted. Back: No CVA tenderness. Full range of motion noted. No obvious deformities, or edema. Mild para-spinal muscular tenderness from lumbar region to coccyx. Full ROM in back and lower extremities. 5/5 strength hip extension/flexion, abduction, adduction. Mild Lumbar pain with hip flexion against resistance. Straight leg raise test negative on right; Straight leg raise test negative on left; Reflexes normal ankle and knee bilaterally; EHL motor strength normal bilaterally. No rashes/lesion/induration/fluctuance or signs infection noted. Skin: Skin warm and dry. Normal skin color. Normal skin turgor. No rashes/lesions/lacerations noted. Extremities: Extremities exhibit normal range of motion. Extremities nontender. Neuro: Oriented X 3. No motor deficit. No sensory deficit. Reflexes normal. Patient has a normal steady gait. Course Course Course Narrative: Pt c likely muscular pain, but could be herniated disc. Neuro exam shows no deficits. Not c/w AAA/epidural abscess/dissection.No high risk Hx (Incont, fever, immunosupp, recent surgery/LP, coag, signif trauma, wt loss, puls mass, hx/o Ca, TB, or IVDU) to warrant repeat MRI/CT today. Not c/w Pyelo/UTI/kidney stone/spinal fx. Not cauda equina syndrome. I reviewed the patient's MRI which was performed on 10/11/2021 will DC home with symptomatic treatment instructions to follow-up with his PCP and [facility] and to return if any new or worsening symptoms. Patient understands agrees with this plan. MDM - Back Pain/Injury Medical Records Attestation: I reviewed the patient's medical records. Imaging Data MRI of lumbar spine done as an outpatient basis: Attestation: I personally reviewed and interpreted this imaging study as follows: Radiologist's impression: Ordering Physician: SHER YAO NP Date of Service: 10/07/21 Procedure(s): MR lumbar spine wo con Accession Number(s): [id number] cc: SHER YAO NP~ EXAMINATION: MR LUMBAR SPINE WITHOUT CONTRAST CLINICAL INFORMATION: Spinal stenosis with neurogenic claudication. COMPARISON: CT scan of the lumbosacral spine October 2018. TECHNIQUE: MRI of the lumbar spine was obtained using routine sequences without contrast. FINDINGS: VERTEBRAL BODIES AND PARASPINAL STRUCTURES: Vertebral bodies normally aligned with normal height and marrow. Degenerative disc changes present at L3-L4 and L4-L5. There is mild atrophy and fatty infiltration of the paraspinal muscles. CONUS MEDULLARIS AND CAUDA EQUINA: Conus is at the level of L1-L2. Cauda equina normal. SPINAL LEVELS: T12-L1: Normal. L1-L2: Normal. L2-L3: Normal. L3-L4: Minimal hypertrophic changes of the ligamentum flavum and facet arthrosis. Disc desiccation and minimal bulging of the disc. Findings result in mild narrowing of the central canal and neural foramina bilaterally. L4-L5: Disc desiccation with generalized bulging of the disc. Mild hypertrophic changes of the facets and ligamentum flavum. Findings result in mild narrowing of the central canal, moderate narrowing of the right neural foramina and mild narrowing of left neural foramina L5-S1: Normal. MR/MR lumbar spine wo con IMPRESSION: Multilevel spondylosis lumbosacral spine with degenerative changes in the L3-L4 and L4-L5. ? At L3-L4, there is mild narrowing central canal and neural foramina bilaterally. ? At L4-L5, there is mild narrowing of the central canal and moderate narrowing of the right neural foramina with mild narrowing of the left neural foramina. Discharge Plan Discharge Clinical Impression: Spondylosis Patient Disposition: Home, Self-Care Instructions: Osteoarthritis (ED) Prescriptions: New naproxen 500 mg tablet 500 mg PO BID PRN (Reason: pain) Qty: 14 0RF cyclobenzaprine 10 mg tablet 10 mg PO Q8H Qty: 14 0RF prednisone 20 mg tablet 40 mg PO DAILY 5 Days Qty: 10 0RF oxycodone 5 mg tablet 5 mg PO Q6H PRN (Reason: pain) Qty: 14 0RF Rx Instructions: Partial Fill upon patient request. No Action gabapentin 300 mg capsule 300 mg PO TID Qty: 30 0RF cyclobenzaprine 10 mg tablet 10 mg PO TID PRN (Reason: muscle spasm) Qty: 12 0RF lidocaine [Lidoderm] 5 % adhesive patch,medicated 1 patch topical DAILY Qty: 15 0RF Rx Instructions: leave on most painful area for up to 12 hrs doxycycline monohydrate 100 mg capsule 100 mg PO BID Qty: 14 0RF ibuprofen 800 mg tablet 800 mg PO Q8H PRN (Reason: pain) Qty: 14 0RF oxycodone 5 mg capsule 5 mg PO Q8H PRN (Reason: pain) Qty: 10 0RF doxycycline hyclate 100 mg tablet 100 mg PO BID 10 Days Qty: 20 0RF ibuprofen 800 mg tablet 800 mg PO Q8H PRN (Reason: pain) Qty: 14 0RF acetaminophen [Tylenol Extra Strength] 500 mg tablet 1,000 mg PO QID PRN (Reason: fever or pain) Qty: 14 0RF oxycodone 5 mg tablet 5 mg PO BID PRN (Reason: pain) Qty: 10 0RF cephalexin 500 mg capsule 500 mg PO Q12H 10 Days Qty: 20 0RF Referrals: Allyson Gotti PA-C [Primary Care Provider] - 3 days
== END 2021-10-27 14:16 | disposition home or self-care (01) ==
PROVIDERS: Emergency Provider Emergency Medicine; PCP Physician Assistant
DX: M47.816 Spondylosis without myelopathy or radiculopathy, lumbar region (principal); M54.50 Low back pain, unspecified
CPT/HCPCS: 99283

== ENCOUNTER 2022-03-10 13:03 | Outpatient (REF) | payer MEDICARE, SELFPAY ==
[2022-03-10 13:22] LABS: MANUAL DIFF FLAG NO
[2022-03-10 14:32] LABS: Basophils Percent Auto 0.9 % (0-2); Eosinophils Absolute Auto 0.2 X10*3/uL (0.0-0.4); Eosinophils Percent Auto 6.6 % (0-4); Hemoglobin 12.4 g/dl (14.0-18.0); Imm Gran Abs Auto 0.01 X10*3/uL (0.00-0.03); Imm Gran Pct Auto 0.3 % (0.0-0.4); Lymphocytes Absolute Auto 1.1 X10*3/uL (1.2-4.9); Lymphocytes Percent Auto 33.1 % (20-40); Mean Corpuscular HGB Conc 31.8 g/dl (31.0-36.0); Mean Corpuscular Hemoglobin 25.9 pg (27.0-33.0); Mean Corpuscular Volume 81.4 fL (80.0-98.0); Mean Platelet Volume 10.6 fL (9.4-12.4); Monocytes Absolute Auto 0.2 X10*3/uL (0.1-1.2); Monocytes Percent Auto 5.4 % (2-11); Neutrophils Absolute Auto 1.8 x10*3/uL (2.0-8.3); Neutrophils Percent Auto 53.7 % (45-73); Platelet Count 239 X10*3/uL (160-400); Red Blood Count 4.79 X10*6/uL (4.60-5.80); Red Cell Distribution Width 12.8 % (11.0-16.0); White Blood Count 3.3 X10*3/uL (4.8-10.8)
[2022-03-10 14:48] LABS: Estimated Average Glucose 123 mg/dL; Hemoglobin A1c % 5.9 %
[2022-03-10 14:58] LABS: Alanine Aminotransferase 66 U/L (0-40); Albumin Level 4.3 g/dL (3.5-5.0); Alkaline Phosphatase 77 U/L (39-117); Anion Gap 11 (12-20); Aspartate Amino Transferase 44 U/L (5-37); Bilirubin Total 0.9 mg/dL (0.0-1.0); Blood Urea Nitrogen 20 mg/dL (9-16); Calcium 9.4 mg/dL (8.4-10.2); Carbon Dioxide 29 mmol/L (22-29); Chloride 105 mmol/L (96-108); Cholesterol 136 mg/dL; Estimated Glomerular Filt Rate > 60; Glucose Random 106 mg/dL (60-115); HDL Cholesterol 58 mg/dL; LDL Cholesterol Calculated 71 mg/dl; Potassium 3.9 mmol/L (3.3-5.1); Sodium 141 mmol/L (135-145); Total Protein 6.5 g/dL (6.5-8.0); Triglycerides 37 mg/dL
[2022-03-10 15:18] LABS: Prostate Specific Antigen 2.31 ng/mL (<0.05-4.0)
== END 2022-03-10 13:04 | disposition home or self-care (01) ==
LOC: HO.LAB 13:03
PROVIDERS: PCP Physician Assistant; Visit Provider Physician Assistant
DX: Z12.5 Encounter for screening for malignant neoplasm of prostate (principal); N40.1 Benign prostatic hyperplasia with lower urinary tract symptoms; I10 Essential (primary) hypertension; E78.5 Hyperlipidemia, unspecified; K76.0 Fatty (change of) liver, not elsewhere classified
CPT/HCPCS: 36415; 80053; 80061; 83036; 84153; 85025

== ENCOUNTER 2022-04-07 10:13 | Emergency (ER) | payer MEDICARE, SELFPAY ==
[2022-04-07 10:22] VITALS: BP 165/87; PULSE 73; RESP 18; O2SAT 98; BMI 29.2
[2022-04-07 10:47] LABS: COVID-19 Test Negative (Negative); IDNOW Serial# 16C4AD1C; IDNOW Serial# 6674DD1D; Strep A Nucleic Acid Negative (Negative)
--- NOTE | 2022-04-07 10:50 | ED_ITS ---
HPI - URI/Sore Throat General Chief Complaint: Upper Respiratory Symptoms Stated Complaint: Sore Throat Runny Nose Time Seen by Provider: 04/07/22 10:21 Source: patient Mode of arrival: ambulatory Limitations: no limitations History of Present Illness HPI Narrative: 62 yo male presents to the ER from home for evaluation of sore throat, runny nose and congestion for the last 4 days. He developed a cough yesterday, unable to bring up phlegm. No fevers. No SOB or difficulty breathing. He has been taking mucinex, theraflu and dayquil/nyquil. He states he has a lot of runny nose, post nasal drip and sore throat espicially when laying flat and 1st thing in the morning. He denies sick contacts, lives home alone. MD elicited complaint: cough, sore throat, rhinorrhea and nasal congestion Onset (ago): day(s) (4) Severity: moderate Description of mucous: clear and watery Able to tolerate fluids by mouth: Yes Exacerbating factors: supine positioning Relieving factors: OTC cold medicine Associated symptoms: voice changes, rhinorrhea, nasal congestion, sore throat and cough Treatments prior to arrival: none Related Data Previous Rx's Medication Instructions Recorded cyclobenzaprine 10 mg tablet 10 mg PO TID PRN muscle spasm #12 03/05/20 tabs gabapentin 300 mg capsule 300 mg PO TID #30 caps 03/05/20 lidocaine 5 % topical patch 1 patch topical DAILY #15 ea 03/05/20 (Lidoderm) oxycodone 5 mg capsule 5 mg PO Q8H PRN pain #10 caps 05/12/20 doxycycline monohydrate 100 mg 100 mg PO BID #14 caps 07/17/20 capsule ibuprofen 800 mg tablet 800 mg PO Q8H PRN pain #14 tabs 07/17/20 acetaminophen 500 mg tablet 1,000 mg PO QID PRN fever or pain 09/10/20 (Tylenol Extra Strength) #14 tabs cephalexin 500 mg capsule 500 mg PO Q12H 10 days #20 caps 09/10/20 doxycycline hyclate 100 mg tablet 100 mg PO BID 09/10/20 Paronychia/cellulitis 10 days #20 tabs ibuprofen 800 mg tablet 800 mg PO Q8H PRN pain #14 tabs 09/10/20 oxycodone 5 mg tablet 5 mg PO BID PRN pain #10 tabs 09/10/20 cyclobenzaprine 10 mg tablet 10 mg PO Q8H #14 tabs 10/27/21 naproxen 500 mg tablet 500 mg PO BID PRN pain #14 tabs 10/27/21 oxycodone 5 mg tablet 5 mg PO Q6H PRN pain #14 tabs 10/27/21 prednisone 20 mg tablet 40 mg PO DAILY inflammation 5 days 10/27/21 #10 tabs fluticasone propionate 50 2 spray intranasal DAILY #16 grams 04/07/22 mcg/actuation nasal spray,suspension (Flonase Allergy Relief) Allergies Allergy/AdvReac Type Severity Reaction Status Date / Time risperidone [From RISPERDAL] Allergy Severe SHORTNESS Verified 05/12/20 14:07 OF BREATH Review of Systems Review of Systems: Yes all other systems are reviewed and are negative [facility] Past Medical History Medical History HTN (hypertension) Social History Social History Advance Directives: No Advance Directives Information Provided: No Physical Exam Vital Signs: Vital Signs: Last Vital Signs Pulse 73 04/07/22 10:22 Resp 18 04/07/22 10:22 BP 165/87 H 04/07/22 10:22 Pulse Ox 98 04/07/22 10:22 O2 Del Method 04/07/22 10:22 BMI result Body Mass Index 29.2 Appearance: Alert. Oriented X3. No acute distress. Eyes: Pupils equal, round and reactive to light. ENT: Pharynx with mild generalized posterior erythema. Moist mucous membranes. No tonsillar swelling or exudate. Uvula midline. Normal voice. Handling secretions normally. Normal TMs bilaterally. Neck: Normal inspection. Neck supple. No lymphadenopathy CVS: Normal heart rate and rhythm. Pulses normal. Respiratory: No respiratory distress. Breath sounds normal. Skin: Skin warm and dry. Normal skin color. Normal skin turgor. No rashes. Extremities: No lower extremity edema. Neuro: Oriented X 3. Grossly normal, nonfocal, steady gait Course Course Course Narrative: 8-year-old male presenting with URI symptoms for the last 4 days. Nontoxic appearing with normal vital signs. Exam is unremarkable. Will get viral swabs and strep throat swab. Likely viral illness. Reevaluation(s) Reevaluation #1: Negative for strep, COVID, flu. We discussed results and management of viral illnesses. Will prescribe nasal steroid given his postnasal drip and runny nose. He was encouraged follow-up with his primary care doctor. Stable for discharge home. Patient agrees with plan all questions were answered. Medical Decision Making Medical Decision Making MDM Narrative: 8-year-old male presenting with URI symptoms and cough. Most likely viral illness, doubt bacterial pneumonia. No chest pain or shortness of breath to suggest ACS or PE. Differential Diagnosis Differential Diagnoses: The differential diagnosis associated with the presentation includes Acute viral syndrome, bacterial pharyngitis, viral pharyngitis, seasonal allergies, pneumonia, bronchitis, sinus infection Lab Data MDM Lab Attestation statement: I reviewed the patient's lab results. All swabs are negative Labs: Lab Results 04/07/22 04/07/22 04/07/22 Range/Units 10:28 10:28 10:28 COVID-19 (ROJAS) Negative (Negative) COVID-19 Clin Com See Note Influenza Type A (NARESH) Negative (Negative) Influenza Type B (NARESH) Negative (Negative) Influenza A & B Note See Note S. pyogenes GrpA NARESH Negative (Negative) External Record Review External record reviewed: Outpatient record and Prior outpatient labs Prescription Management I considered prescription management with: Antiviral and Antibiotic None indicated at this time. Critical Care Time Critical Care Time Critical Care Time: No Discharge Plan Discharge Clinical Impression: Viral URI with cough Patient Disposition: Home, Self-Care Instructions: Upper Respiratory Infection (ED) Additional Instructions: You tested negative for COVID-19, influenza A and B as well as strep throat. Your symptoms are most likely due to a viral upper respiratory infection. Treatment is rest and supportive care. Continue taking the [id number] cold and flu medications as you are. Start taking the newly prescribed nasal spray to help decrease the runny nose and postnasal drip. Follow-up with primary care doctor. If you develop new or worsening symptoms call 911 or come back to the ER for further evaluation. Prescriptions: New fluticasone propionate [Flonase Allergy Relief] 50 mcg/actuation spray,suspension 2 spray intranasal DAILY Qty: 16 0RF Rx Instructions: administer into each nostril No Action gabapentin 300 mg capsule 300 mg PO TID Qty: 30 0RF cyclobenzaprine 10 mg tablet 10 mg PO TID PRN (Reason: muscle spasm) Qty: 12 0RF lidocaine [Lidoderm] 5 % adhesive patch,medicated 1 patch topical DAILY Qty: 15 0RF Rx Instructions: leave on most painful area for up to 12 hrs doxycycline monohydrate 100 mg capsule 100 mg PO BID Qty: 14 0RF ibuprofen 800 mg tablet 800 mg PO Q8H PRN (Reason: pain) Qty: 14 0RF oxycodone 5 mg capsule 5 mg PO Q8H PRN (Reason: pain) Qty: 10 0RF doxycycline hyclate 100 mg tablet 100 mg PO BID 10 Days Qty: 20 0RF ibuprofen 800 mg tablet 800 mg PO Q8H PRN (Reason: pain) Qty: 14 0RF acetaminophen [Tylenol Extra Strength] 500 mg tablet 1,000 mg PO QID PRN (Reason: fever or pain) Qty: 14 0RF oxycodone 5 mg tablet 5 mg PO BID PRN (Reason: pain) Qty: 10 0RF cephalexin 500 mg capsule 500 mg PO Q12H 10 Days Qty: 20 0RF naproxen 500 mg tablet 500 mg PO BID PRN (Reason: pain) Qty: 14 0RF cyclobenzaprine 10 mg tablet 10 mg PO Q8H Qty: 14 0RF prednisone 20 mg tablet 40 mg PO DAILY 5 Days Qty: 10 0RF oxycodone 5 mg tablet 5 mg PO Q6H PRN (Reason: pain) Qty: 14 0RF Rx Instructions: Partial Fill upon patient request. Interventions: ED Discharge Assessment Last Done: 04/07/22 11:24 Discharge Date/Time: 04/07/22 11:25
[2022-04-07 11:15] LABS: IDNOW Serial# 9DB6401D; Influenza A Negative (Negative); Influenza B2 Negative (Negative)
== END 2022-04-07 11:25 | disposition home or self-care (01) ==
PROVIDERS: Physician Assistant; Emergency Provider Emergency Medicine; PCP Physician Assistant
DX: J06.9 Acute upper respiratory infection, unspecified (principal); R05.9 Cough, unspecified; Z20.822 Contact with and (suspected) exposure to COVID-19; Z20.828 Contact with and (suspected) exposure to other viral communicable diseases; Z79.899 Other long term (current) drug therapy
CPT/HCPCS: 87502; 87635; 87651; 99282; 99283

== ENCOUNTER 2022-09-10 10:32 | Emergency (ER) | payer MEDICARE, MEDICAID, SELFPAY ==
[2022-09-10 10:34] VITALS: BP 141/73; PULSE 57; RESP 17; TEMP 36.6; O2SAT 99; BMI 29.8
--- NOTE | 2022-09-10 11:00 | ED.BACK ---
HPI - Back Pain/Injury General Chief Complaint: Back Pain/Injury Stated Complaint: back pain Time Seen by Provider: 09/10/22 10:46 Source: patient Mode of arrival: ambulatory Limitations: no limitations History of Present Illness HPI Narrative: 62-year-old male with a history of chronic back pain presents to the ER with complaints of worsening back pain since last night. Patient describes the pain as pain in his lower back with radiation to his left thigh. No associated numbness or tingling. No numbness in the groin. No bowel or bladder incontinence. No fevers or chills. Patient is using Stephan balm patches for pain. He has an outpatient MRI ordered for Sunday Related Data Previous Rx's Medication Instructions Recorded cyclobenzaprine 10 mg tablet 10 mg PO TID PRN muscle spasm #12 03/05/20 tabs gabapentin 300 mg capsule 300 mg PO TID #30 caps 03/05/20 lidocaine 5 % topical patch 1 patch topical DAILY #15 ea 03/05/20 (Lidoderm) oxycodone 5 mg capsule 5 mg PO Q8H PRN pain #10 caps 05/12/20 doxycycline monohydrate 100 mg 100 mg PO BID #14 caps 07/17/20 capsule ibuprofen 800 mg tablet 800 mg PO Q8H PRN pain #14 tabs 07/17/20 acetaminophen 500 mg tablet 1,000 mg PO QID PRN fever or pain 09/10/20 (Tylenol Extra Strength) #14 tabs cephalexin 500 mg capsule 500 mg PO Q12H 10 days #20 caps 09/10/20 doxycycline hyclate 100 mg tablet 100 mg PO BID 09/10/20 Paronychia/cellulitis 10 days #20 tabs ibuprofen 800 mg tablet 800 mg PO Q8H PRN pain #14 tabs 09/10/20 oxycodone 5 mg tablet 5 mg PO BID PRN pain #10 tabs 09/10/20 cyclobenzaprine 10 mg tablet 10 mg PO Q8H #14 tabs 10/27/21 naproxen 500 mg tablet 500 mg PO BID PRN pain #14 tabs 10/27/21 oxycodone 5 mg tablet 5 mg PO Q6H PRN pain #14 tabs 10/27/21 prednisone 20 mg tablet 40 mg PO DAILY inflammation 5 days 10/27/21 #10 tabs fluticasone propionate 50 2 spray intranasal DAILY #16 grams 04/07/22 mcg/actuation nasal spray,suspension (Flonase Allergy Relief) cyclobenzaprine 10 mg tablet 10 mg PO TID PRN muscle spasm #15 09/10/22 tabs naproxen 500 mg tablet 500 mg PO BID PRN pain #30 tabs 09/10/22 Allergies Allergy/AdvReac Type Severity Reaction Status Date / Time risperidone [From RISPERDAL] Allergy Severe SHORTNESS Verified 09/10/22 10:34 OF BREATH Review of Systems Review of Systems: Yes all other systems are reviewed and are negative Constitutional: Constitutional: Reports no additional constitutional complaints, Denies body ache(s), Denies chills, Denies fever(s), Denies headache(s) and Denies weakness Eyes: Eyes: Reports no additional eye complaints and Denies change in vision ENT: Reports system reviewed and no additional complaints, except as documented, Denies dizziness, Denies headache(s), Denies nasal congestion, Denies nasal discharge and Denies neck pain Cardiovascular: Cardiovascular: Reports no additional cardiovascular complaints, Denies chest pain, Denies leg edema and Denies dyspnea Respiratory: Respiratory: Reports no additional respiratory complaints, Denies cough and Denies dyspnea Gastrointestinal: Gastrointestinal: Reports no additional gastrointestinal complaints, Denies abdominal pain, Denies diarrhea, Denies nausea and Denies vomiting Genitourinary: Genitourinary: Denies urinary incontinence Musculoskeletal: Musculoskeletal: Reports no additional musculoskeletal complaints, Reports back pain, Denies arthralgias, Denies joint swelling, Denies neck pain, Denies numbness and Denies tingling Integumentary/Breasts: Skin/Breast: Reports system reviewed and no additional complaints, except as docu and Denies rash Neurologic: Reports system reviewed and no additional complaints, except as documented, Denies Abnormal speech present, Denies dizziness, Denies headache(s), Denies numbness, Denies tingling and Denies weakness PMFSH Past Medical History Attestation statement: The following information was validated with the patient. Source: old records reviewed and nursing notes reviewed Medical History HTN (hypertension) Physical Exam Vital Signs: Vital Signs: Last Vital Signs Temp 98 F 09/10/22 10:34 Pulse 57 09/10/22 10:34 Resp 17 09/10/22 10:34 BP 141/73 H 09/10/22 10:34 Pulse Ox 99 09/10/22 10:34 BMI result Body Mass Index 29.8 Const: General: cooperative, healthy appearing, comfortable and no acute distress Orientation/consciousness: patient oriented x3 Limitations: no limitations HEENT: Head: Yes normal to inspection Ears: hearing grossly normal bilaterally General nose exam: Normal external nose present Face and sinus: Yes normal facial exam Mouth: Normal oral and palatal mucosa present Throat: Yes posterior oropharynx normal Eyes: General: appearance normal, both eyes and all related structures Pupils: Equal, round and reactive pupils present Neck: Neck: Yes normal visual inspection Chest: Chest palpation & inspection: normal inspection of the chest Resp: Effort & Inspection: normal respiratory effort Auscultation: clear to auscultation bilaterally Cardio: Rate: regular rate Rhythm: regular rhythm Peripheral pulses: Peripheral pulses 2+ throughout GI: Inspection: Yes normal to inspection Palpation (GI): Soft to palpation and nontender Auscultation: normal bowel sounds Back/Spine/Pelvis: Other: There is some tenderness the lumbar spine with no midline step-offs or deformities Thoracic/Lumbar Spine: thoracic and lumbar spine normal to inspection Skin: General skin exam: no rashes or lesions noted Neuro: General: patient oriented x3, no focal motor deficits and normal sensation to monofilament Cranial nerves: Yes CN's II-XII intact bilaterally, Yes Equal, round and reactive pupils present, Yes Bilaterally intact EOM present, Yes Nystagmus not present, Yes Normal facial strength present and Yes Midline tongue present Cognition (Neuro): normal cognition Speech: No Abnormal speech present Gait exam (Neuro): Normal gait present Motor exam (neuro): 5/5 motor strength present throughout Sensory Exam: Normal double simultaneous stimulation for sensation Deep tendon reflexes (DTR's): Right patellar reflex intensity grade: 2+ and Left patellar reflex intensity grade: 2+ Extrem: General: Yes normal to inspection, Yes no pedal edema and Yes no calf tenderness Medical Decision Making Medical Decision Making [facility] Narrative: 62-year-old male here with acute on chronic back pain with no new injury or trauma. No overt neurological deficits or red flag symptoms. Has outpatient MRI this week Likely lumbar strain Patient will be given Toradol in the ER I will send him home with NSAIDs and muscle relaxants with plan to follow-up for his MRI Reviewed worrisome signs and symptoms of when to return to the emergency room. Comfortable plan for discharge home. Differential Diagnosis Differential Diagnoses: The differential diagnosis associated with the presentation includes Lumbar radiculopathy, lumbar strain Low concern for cord compression, cauda equina, epidural abscess, malignancy, fracture Discharge Plan Discharge Clinical Impression: Back pain Patient Disposition: Home, Self-Care Instructions: Acute Low Back Pain (ED) Additional Instructions: Continue the medicated patches Follow-up for your MRI Apply heat or ice Gentle stretching No heavy lifting or bending Prescriptions: New cyclobenzaprine 10 mg tablet 10 mg PO TID PRN (Reason: muscle spasm) Qty: 15 0RF naproxen 500 mg tablet 500 mg PO BID PRN (Reason: pain) Qty: 30 0RF No Action gabapentin 300 mg capsule 300 mg PO TID Qty: 30 0RF cyclobenzaprine 10 mg tablet 10 mg PO TID PRN (Reason: muscle spasm) Qty: 12 0RF lidocaine [Lidoderm] 5 % adhesive patch,medicated 1 patch topical DAILY Qty: 15 0RF Rx Instructions: leave on most painful area for up to 12 hrs doxycycline monohydrate 100 mg capsule 100 mg PO BID Qty: 14 0RF ibuprofen 800 mg tablet 800 mg PO Q8H PRN (Reason: pain) Qty: 14 0RF oxycodone 5 mg capsule 5 mg PO Q8H PRN (Reason: pain) Qty: 10 0RF doxycycline hyclate 100 mg tablet 100 mg PO BID 10 Days Qty: 20 0RF ibuprofen 800 mg tablet 800 mg PO Q8H PRN (Reason: pain) Qty: 14 0RF acetaminophen [Tylenol Extra Strength] 500 mg tablet 1,000 mg PO QID PRN (Reason: fever or pain) Qty: 14 0RF oxycodone 5 mg tablet 5 mg PO BID PRN (Reason: pain) Qty: 10 0RF cephalexin 500 mg capsule 500 mg PO Q12H 10 Days Qty: 20 0RF naproxen 500 mg tablet 500 mg PO BID PRN (Reason: pain) Qty: 14 0RF cyclobenzaprine 10 mg tablet 10 mg PO Q8H Qty: 14 0RF prednisone 20 mg tablet 40 mg PO DAILY 5 Days Qty: 10 0RF oxycodone 5 mg tablet 5 mg PO Q6H PRN (Reason: pain) Qty: 14 0RF Rx Instructions: Partial Fill upon patient request. fluticasone propionate [Flonase Allergy Relief] 50 mcg/actuation spray,suspension 2 spray intranasal DAILY Qty: 16 0RF Rx Instructions: administer into each nostril Referrals: Allyson Gotti PA-C [Primary Care Provider] - 1 week
[2022-09-10] MEDS: Ketorolac Tromethamine 30 MG/ML VIAL IM (11:18)
== END 2022-09-10 11:26 | disposition home or self-care (01) ==
PROVIDERS: Emergency Provider Student in an Organized Health Care Education/Training Program; PCP Physician Assistant
DX: M54.50 Low back pain, unspecified (principal); I10 Essential (primary) hypertension; Z79.899 Other long term (current) drug therapy
CPT/HCPCS: 96372; 99283; 99284; J1885

== ENCOUNTER 2022-10-01 12:46 | Emergency (ER) | payer MEDICARE, MEDICAID, SELFPAY ==
[2022-10-01 13:30] VITALS: BP 154/83; PULSE 54; RESP 18; TEMP 36.6; O2SAT 100; BMI 29.3
--- NOTE | 2022-10-01 13:31 | ED.GENADULT ---
HPI - General Adult General Chief complaint: Back Pain/Injury Stated complaint: Back Pain No Injury Time Seen by Provider: 10/01/22 16:51 Source: patient and RN notes reviewed Mode of arrival: ambulatory Limitations: no limitations History of Present Illness HPI narrative: This is a 62-year-old male, with a past medical history of chronic back pain, presenting to the emergency department complaints of acute on chronic low back pain x several days. Patient denies any recent trauma or injury to his back. Denies any heavy lifting or falls. Patient has been seen here in the emergency department for similar back pain and states that his back pain is consistent with exacerbation of his back pain. Patient denies any fevers, chills, abdominal pain, nausea, vomiting, diarrhea, urinary incontinence or bladder incontinence. Denies saddle anesthesia. Patient is able to walk without difficulty. Patient states that he had some relief after receiving Toradol injection and muscle relaxants however does not have any medications at home to treat his current back pain. Patient had an MRI of his back but has not followed up with his primary care physician regarding these results. No other complaints or concerns at this time. MD complaint: Back pain Onset (ago): day(s) Location: back Radiation: non-radiation Quality: aching Pain Consistency: constant Relieving factors: none Exacerbating factors: none Associated symptoms: denies other symptoms Treatments prior to arrival: none Related Data Previous Rx's Medication Instructions Recorded cyclobenzaprine 10 mg tablet 10 mg PO TID PRN muscle spasm #12 03/05/20 tabs gabapentin 300 mg capsule 300 mg PO TID #30 caps 03/05/20 lidocaine 5 % topical patch 1 patch topical DAILY #15 ea 03/05/20 (Lidoderm) oxycodone 5 mg capsule 5 mg PO Q8H PRN pain #10 caps 05/12/20 doxycycline monohydrate 100 mg 100 mg PO BID #14 caps 07/17/20 capsule ibuprofen 800 mg tablet 800 mg PO Q8H PRN pain #14 tabs 07/17/20 acetaminophen 500 mg tablet 1,000 mg PO QID PRN fever or pain 09/10/20 (Tylenol Extra Strength) #14 tabs cephalexin 500 mg capsule 500 mg PO Q12H 10 days #20 caps 09/10/20 doxycycline hyclate 100 mg tablet 100 mg PO BID 09/10/20 Paronychia/cellulitis 10 days #20 tabs ibuprofen 800 mg tablet 800 mg PO Q8H PRN pain #14 tabs 09/10/20 oxycodone 5 mg tablet 5 mg PO BID PRN pain #10 tabs 09/10/20 cyclobenzaprine 10 mg tablet 10 mg PO Q8H #14 tabs 10/27/21 naproxen 500 mg tablet 500 mg PO BID PRN pain #14 tabs 10/27/21 oxycodone 5 mg tablet 5 mg PO Q6H PRN pain #14 tabs 10/27/21 prednisone 20 mg tablet 40 mg PO DAILY inflammation 5 days 10/27/21 #10 tabs fluticasone propionate 50 2 spray intranasal DAILY #16 grams 04/07/22 mcg/actuation nasal spray,suspension (Flonase Allergy Relief) cyclobenzaprine 10 mg tablet 10 mg PO TID PRN muscle spasm #15 09/10/22 tabs naproxen 500 mg tablet 500 mg PO BID PRN pain #30 tabs 09/10/22 cyclobenzaprine 5 mg tablet 10 mg PO TID PRN muscle spasm 10 10/01/22 days #14 tabs prednisone 20 mg tablet 40 mg PO DAILY 5 days #10 tabs 10/01/22 Allergies Allergy/AdvReac Type Severity Reaction Status Date / Time risperidone [From RISPERDAL] Allergy Severe SHORTNESS Verified 10/01/22 13:30 OF BREATH Review of Systems Review of Systems: Yes all other systems are reviewed and are negative Constitutional: Constitutional: Reports as per [facility] Past Medical History Medical History HTN (hypertension) Social History Social History Smoked in Last 30 Days: No Use of substances other than those prescribed or required for medical reasons: No Advance Directives: No Advance Directives Information Provided: No Physical Exam ED Vital Signs: Vital Signs - 24 hr 10/01/22 13:30 10/01/22 16:15 Temperature 98 F Pulse Rate 54 57 Respiratory Rate 18 17 Blood Pressure 154/83 H 146/83 H Pulse Oximetry 100 99 Oxygen Delivery Method Room Air Room Air BMI result Body Mass Index 29.3 Const General: cooperative, comfortable and no acute distress Orientation/consciousness: patient oriented x3 Limitations: no limitations HENMT Head: Yes normal to inspection, Yes normocephalic and Yes atraumatic Ears: hearing grossly normal bilaterally General nose exam: Normal external nose present Face and sinus: Yes normal facial exam Mouth: Normal oral and palatal mucosa present, oropharynx normal and moist mucous membranes Throat: Yes posterior oropharynx normal Eyes General: appearance normal, both eyes and all related structures Eyelids: Yes eyelids normal Conjunctivae: conjunctivae normal Sclerae: sclerae normal Pupils: Equal, round and reactive pupils present EOM: EOMs intact bilaterally Neck Neck: Yes normal visual inspection, Yes full ROM and Yes no lymphadenopathy Lymphatic: no lymphadenopathy noted Chest Chest palpation & inspection: normal inspection of the chest Resp Effort & Inspection: normal respiratory effort and able to speak in complete sentences Auscultation: clear to auscultation bilaterally, no crackles, no rales, no rhonchi and no wheezes Cardio Rate: regular rate Rhythm: regular rhythm Heart sounds: S1 normal heart sound present and S2 normal heart sound present GI Inspection: Yes normal to inspection Palpation (GI): Soft to palpation, nontender and no guarding Back/Spine/Pelvis Other: Tenderness to palpation along the lumbar back musculature. No lumbar midline spine tenderness. Patellar reflexes 2+ bilaterally. Distal circulation and sensation intact. Skin General skin exam: no rashes or lesions noted Trauma: no lacerations or abrasions Wounds: no wounds Neuro General: patient oriented x3 and moves all extremities Cranial nerves: Yes Equal, round and reactive pupils present Extrem General: Yes normal to inspection Right upper extremity: normal to inspection Left upper extremity: normal to inspection Right lower extremity: normal to inspection Left lower extremity: normal to inspection Course Course Course Narrative: RME: 62 yold with pmh of chronic back pain presents to the ED for low back pain exacerbation. Patient deneis any recent trauam, abdominal pain, nausea, voimtting, flank pain, or any complaints. Patient denies any urinary/bowel incontienence. Medications Administered Discontinued Medications Generic Name Dose Route Start Last Admin Trade Name Freq PRN Reason Stop Dose Admin Ketorolac Tromethamine 30 mg 10/01/22 17:11 10/01/22 17:21 Ketorolac Tromethamine 30 Mg/Ml Vial IM 10/01/22 17:12 30 mg ONCE ONE Administration Medical Decision Making Medical Decision Making MDM Narrative: 62-year-old male, with a past medical history, presenting to the emergency department for evaluation acute chronic back pain. Patient has been followed by his primary care physician regarding his symptoms, and had an MRI of his lumbar spine last year which revealed degenerative changes as well as mild narrowing of the central canal. Patient does not have any red flag back symptoms, no urinary incontinence bowel incontinence, or saddle anesthesia. Given exacerbation of back pain with tenderness upon the paraspinous muscles, will treat with course of prednisone and muscle relaxants. Patient is urged the importance to follow up with primary care physician regarding his symptoms as they can further manage his pain. Patient understands and agrees with plan. Patient given return precautions if any new or worsening symptoms occur. Vital signs remained stable and department, patient is ambulatory. Patient is stable for discharge Differential Diagnosis Differential Diagnoses: The differential diagnosis associated with the presentation includes Disc herniation, cauda equina syndrome-unlikely, sciatica Admission/Observation Consideration of admission/observation: Escalation of care including admission/observation considered External Record Review External record reviewed: Inpatient record, Office record, Outpatient record, Prior outpatient labs, Prior outpatient radiology, Primary care record and Outside ED record Review of MRI report and previous ER visit regarding back pain Prescription Management I considered prescription management with: Pain Medication Discharge Plan Discharge Clinical Impression: Back pain Patient Disposition: Home, Self-Care Instructions: Back Pain (ED) Additional Instructions: Take prescribed medication as directed. Apply heat or ice Gentle stretching No heavy lifting or bending. Follow-up with your primary care physician. If any new or worsening symptoms occur including but not limited to urinary incontinence, bowel incontinence, numbness and tingling anterior groin, weakness, or any other concerns please return for re-evaluation. Prescriptions: New prednisone 20 mg tablet 40 mg PO DAILY 5 Days Qty: 10 0RF cyclobenzaprine 5 mg tablet 10 mg PO TID PRN (Reason: muscle spasm) 10 Days Qty: 14 0RF No Action gabapentin 300 mg capsule 300 mg PO TID Qty: 30 0RF cyclobenzaprine 10 mg tablet 10 mg PO TID PRN (Reason: muscle spasm) Qty: 12 0RF lidocaine [Lidoderm] 5 % adhesive patch,medicated 1 patch topical DAILY Qty: 15 0RF Rx Instructions: leave on most painful area for up to 12 hrs doxycycline monohydrate 100 mg capsule 100 mg PO BID Qty: 14 0RF ibuprofen 800 mg tablet 800 mg PO Q8H PRN (Reason: pain) Qty: 14 0RF oxycodone 5 mg capsule 5 mg PO Q8H PRN (Reason: pain) Qty: 10 0RF doxycycline hyclate 100 mg tablet 100 mg PO BID 10 Days Qty: 20 0RF ibuprofen 800 mg tablet 800 mg PO Q8H PRN (Reason: pain) Qty: 14 0RF acetaminophen [Tylenol Extra Strength] 500 mg tablet 1,000 mg PO QID PRN (Reason: fever or pain) Qty: 14 0RF oxycodone 5 mg tablet 5 mg PO BID PRN (Reason: pain) Qty: 10 0RF cephalexin 500 mg capsule 500 mg PO Q12H 10 Days Qty: 20 0RF naproxen 500 mg tablet 500 mg PO BID PRN (Reason: pain) Qty: 14 0RF cyclobenzaprine 10 mg tablet 10 mg PO Q8H Qty: 14 0RF prednisone 20 mg tablet 40 mg PO DAILY 5 Days Qty: 10 0RF oxycodone 5 mg tablet 5 mg PO Q6H PRN (Reason: pain) Qty: 14 0RF Rx Instructions: Partial Fill upon patient request. fluticasone propionate [Flonase Allergy Relief] 50 mcg/actuation spray,suspension 2 spray intranasal DAILY Qty: 16 0RF Rx Instructions: administer into each nostril cyclobenzaprine 10 mg tablet 10 mg PO TID PRN (Reason: muscle spasm) Qty: 15 0RF naproxen 500 mg tablet 500 mg PO BID PRN (Reason: pain) Qty: 30 0RF Interventions: ED Discharge Assessment Last Done: 10/01/22 17:24 Discharge Date/Time: 10/01/22 17:25
[2022-10-01 16:15] VITALS: BP 146/83; PULSE 57; RESP 17; O2SAT 99
== END 2022-10-01 17:25 | disposition home or self-care (01) ==
PROVIDERS: Emergency Provider Internal Medicine; PCP Physician Assistant
DX: M54.50 Low back pain, unspecified (principal); Z79.899 Other long term (current) drug therapy
CPT/HCPCS: 96372; 99284; J1885

== ENCOUNTER 2022-10-09 20:56 | Emergency (ER) | payer MEDICARE, MEDICAID, SELFPAY ==
[2022-10-09 22:06] VITALS: BP 158/84; PULSE 88; RESP 18; TEMP 37.8; O2SAT 98; BMI 29.3
--- NOTE | 2022-10-09 22:33 | MHC.EDTECH ---
pPATIENT BLOOD DRAWN AND SENT TO LAB .
[2022-10-09 22:38] LABS: MANUAL DIFF FLAG NO
[2022-10-09 22:39] LABS: Basophils Percent Auto 0.3 % (0-2); Eosinophils Absolute Auto 0.2 X10*3/uL (0.0-0.4); Eosinophils Percent Auto 1.8 % (0-4); Hematocrit 36.8 % (42.0-52.0); Hemoglobin 11.9 g/dl (14.0-18.0); Imm Gran Abs Auto 0.03 X10*3/uL (0.00-0.03); Imm Gran Pct Auto 0.3 % (0.0-0.4); Lymphocytes Absolute Auto 0.7 X10*3/uL (1.2-4.9); Lymphocytes Percent Auto 6.1 % (20-40); Mean Corpuscular HGB Conc 32.3 g/dl (31.0-36.0); Mean Corpuscular Volume 80.3 fL (80.0-98.0); Monocytes Absolute Auto 0.5 X10*3/uL (0.1-1.2); Monocytes Percent Auto 4.5 % (2-11); Neutrophils Absolute Auto 9.6 x10*3/uL (2.0-8.3); Platelet Count 204 X10*3/uL (160-400); Red Blood Count 4.58 X10*6/uL (4.60-5.80); Red Cell Distribution Width 13.2 % (11.0-16.0); White Blood Count 11.1 X10*3/uL (4.8-10.8)
[2022-10-09 22:53] LABS: Alanine Aminotransferase 101 U/L (0-40); Albumin Level 4.3 g/dL (3.5-5.0); Alkaline Phosphatase 72 U/L (39-117); Anion Gap 14 (12-20); Aspartate Amino Transferase 86 U/L (5-37); Bilirubin Total 1.5 mg/dL (0.0-1.0); Blood Urea Nitrogen 19 mg/dL (9-16); Calcium 9.2 mg/dL (8.4-10.2); Carbon Dioxide 27 mmol/L (22-29); Chloride 102 mmol/L (96-108); Creatinine Clr Calc Pharmacy 90.8; Estimated Glomerular Filt Rate > 60; Glucose Random 94 mg/dL (60-115); Potassium 3.5 mmol/L (3.3-5.1); Sodium 139 mmol/L (135-145); Total Protein 6.7 g/dL (6.5-8.0)
[2022-10-10 01:28] VITALS: BP 140/71; PULSE 79; RESP 17; TEMP 36.6; O2SAT 98
--- NOTE | 2022-10-10 01:28 | MHC.EDTECH ---
THIS PCT JUST ASSUMED CARE OF PATIENT ,VITALS SIGN TAKEN AND WARM BLANKET GIVEN .PATIENT RESTING QUIETLY IN BED .
--- NOTE | 2022-10-10 02:51 | ED.SKABFB ---
HPI - Skin/Abscess/Foreign Bdy General Chief complaint: Skin/Abscess/Foreign Body Stated complaint: ?abcess Time Seen by Provider: 10/10/22 02:50 Source: patient Mode of arrival: ambulatory Limitations: no limitations History of Present Illness HPI narrative: left groin swelling and pain starting 3 days prior. Earlier today it started to act up. Onset (ago): day(s) Severity: mild Quality: burning and sharp Related Data Previous Rx's Medication Instructions Recorded cyclobenzaprine 10 mg tablet 10 mg PO TID PRN muscle spasm #12 03/05/20 tabs gabapentin 300 mg capsule 300 mg PO TID #30 caps 03/05/20 lidocaine 5 % topical patch 1 patch topical DAILY #15 ea 03/05/20 (Lidoderm) oxycodone 5 mg capsule 5 mg PO Q8H PRN pain #10 caps 05/12/20 doxycycline monohydrate 100 mg 100 mg PO BID #14 caps 07/17/20 capsule ibuprofen 800 mg tablet 800 mg PO Q8H PRN pain #14 tabs 07/17/20 acetaminophen 500 mg tablet 1,000 mg PO QID PRN fever or pain 09/10/20 (Tylenol Extra Strength) #14 tabs cephalexin 500 mg capsule 500 mg PO Q12H 10 days #20 caps 09/10/20 doxycycline hyclate 100 mg tablet 100 mg PO BID 09/10/20 Paronychia/cellulitis 10 days #20 tabs ibuprofen 800 mg tablet 800 mg PO Q8H PRN pain #14 tabs 09/10/20 oxycodone 5 mg tablet 5 mg PO BID PRN pain #10 tabs 09/10/20 cyclobenzaprine 10 mg tablet 10 mg PO Q8H #14 tabs 10/27/21 naproxen 500 mg tablet 500 mg PO BID PRN pain #14 tabs 10/27/21 oxycodone 5 mg tablet 5 mg PO Q6H PRN pain #14 tabs 10/27/21 prednisone 20 mg tablet 40 mg PO DAILY inflammation 5 days 10/27/21 #10 tabs fluticasone propionate 50 2 spray intranasal DAILY #16 grams 04/07/22 mcg/actuation nasal spray,suspension (Flonase Allergy Relief) cyclobenzaprine 10 mg tablet 10 mg PO TID PRN muscle spasm #15 06/18/23 tabs naproxen 500 mg tablet 500 mg PO BID PRN pain #30 tabs 09/10/22 cyclobenzaprine 5 mg tablet 10 mg PO TID PRN muscle spasm 10 10/01/22 days #14 tabs prednisone 20 mg tablet 40 mg PO DAILY 5 days #10 tabs 10/01/22 amoxicillin 875 mg-potassium 1 tab PO BID #20 tabs 10/10/22 clavulanate 125 mg tablet naproxen 500 mg tablet (Naprosyn) 500 mg PO BID #20 tabs 10/10/22 Allergies Allergy/AdvReac Type Severity Reaction Status Date / Time risperidone [From RISPERDAL] Allergy Severe SHORTNESS Verified 10/01/22 13:30 OF BREATH Review of Systems Review of Systems: Yes all other systems are reviewed and are negative Neurologic: Denies Sensory deficit (Neuro) [facility], [facility] Past Medical History Medical History HTN (hypertension) Social History Social History Advance Directives: No Advance Directives Information Provided: No Physical Exam Vital Signs: Vital Signs: Last Vital Signs Temp 98.9 F 10/10/22 03:29 Pulse 72 10/10/22 03:29 Resp 16 10/10/22 03:29 BP 137/73 10/10/22 03:29 Pulse Ox 99 10/10/22 03:29 O2 Del Method Room Air 10/10/22 03:29 BMI result Body Mass Index 29.3 Const: General: healthy appearing Nutritional Appearance: average body habitus Orientation/consciousness: oriented to person and patient oriented x3 Limitations: no limitations HEENT: Head: Yes normal to inspection Ears: external ears normal General nose exam: Normal external nose present Mouth: Normal oral and palatal mucosa present and oropharynx normal Throat: Yes posterior oropharynx normal Eyes: General: appearance normal, both eyes and all related structures Neck: Other: supple Neck: Yes normal visual inspection Chest: Chest palpation & inspection: normal inspection of the chest Resp: Auscultation: clear to auscultation bilaterally Cardio: Jugular venous distension: no JVD Rate: regular rate Rhythm: regular rhythm Heart sounds: S1 normal heart sound present and S2 normal heart sound present GI: Inspection: Yes normal to inspection Palpation (GI): Soft to palpation, nontender and No hepatosplenomegaly present Auscultation: normal bowel sounds : General: Yes no CVA tenderness Back/Spine/Pelvis: Back: no CVA tenderness Skin: Other: left groin with ulcer and swelling, firm red Neuro: General: oriented to person and patient oriented x3 Cranial nerves: Yes CN's II-XII intact bilaterally Motor exam (neuro): 5/5 motor strength present throughout Sensory Exam: No Sensory deficit (Neuro) Extrem: General: Yes normal to inspection Psych: Appearance: grossly normal Course Reevaluation(s) Reevaluation #1: bedside US did not show fluid collection. Area is very firm will place on antibiotics and warm soaks and dc home Time: 03:04 Medications Administered Discontinued Medications Generic Name Dose Route Start Last Admin Trade Name Freq PRN Reason Stop Dose Admin Amoxicillin/Clavulanate Potassium 875 mg 10/10/22 03:08 10/10/22 03:34 Amoxicillin/Potassium Clav 875 Mg Tablet PO 10/10/22 03:09 875 mg ONCE ONE Administration Ketorolac Tromethamine 60 mg 10/10/22 03:08 10/10/22 03:34 Ketorolac Tromethamine 60 Mg/2 Ml Vial IM 10/10/22 03:09 60 mg ONCE ONE Administration Medical Decision Making Differential Diagnosis Differential Diagnoses: The differential diagnosis associated with the presentation includes (abscess, cellulitis, lymphadenopathy) Admission/Observation Consideration of admission/observation: Escalation of care including admission/observation considered (patient with increasing pain and swelling was considered for admission upon arrival) Lab Data MDM Lab Attestation statement: I reviewed the patient's lab results. (slight elevation of WBC, glucose normal) 10/09/22 22:33 10/09/22 22:33 Labs: Lab Results 10/09/22 10/09/22 Range/Units 22:33 22:33 WBC 11.1 H (4.8-10.8) X10*3/uL RBC 4.58 L (4.60-5.80) X10*6/uL Hgb 11.9 L (14.0-18.0) g/dl Hct 36.8 L (42.0-52.0) % MCV 80.3 (80.0-98.0) fL MCH 26.0 L (27.0-33.0) pg MCHC 32.3 (31.0-36.0) g/dl RDW 13.2 (11.0-16.0) % Plt Count 204 (160-400) X10*3/uL MPV 9.0 L (9.4-12.4) fL Immature Gran % (Auto) 0.3 (0.0-0.4) % Neut % (Auto) 87.0 H (45-73) % Lymph % (Auto) 6.1 L (20-40) % Norman % (Auto) 4.5 (2-11) % Eos % (Auto) 1.8 (0-4) % Baso % (Auto) 0.3 (0-2) % Lymph # (Auto) 0.7 L (1.2-4.9) X10*3/uL Norman # (Auto) 0.5 (0.1-1.2) X10*3/uL Eos # (Auto) 0.2 (0.0-0.4) X10*3/uL Baso # (Auto) 0.0 (0.0-0.2) X10*3/uL Abs Immat Gran (auto) 0.03 (0.00-0.03) X10*3/uL Absolute Neuts (auto) 9.6 H (2.0-8.3) x10*3/uL Absolute Nucleated RBC 0.000 (0.0-0.012) X10*3/uL Nucleated RBC % (auto) 0.0 (0.0-0.2) /100WBC Sodium 139 (135-145) mmol/L Potassium 3.5 (3.3-5.1) mmol/L Chloride 102 (96-108) mmol/L Carbon Dioxide 27 (22-29) mmol/L Anion Gap 14 (12-20) BUN 19 H (9-16) mg/dL Creatinine 0.90 (0.5-1.4) mg/dL Estim Creat Clear Calc 90.8 Estimated GFR > 60 Random Glucose 94 (60-115) mg/dL Calcium 9.2 (8.4-10.2) mg/dL Total Bilirubin 1.5 H (0.0-1.0) mg/dL AST 86 H (5-37) U/L ALT 101 H (0-40) U/L Alkaline Phosphatase 72 (39-117) U/L Total Protein 6.7 (6.5-8.0) g/dL Albumin 4.3 (3.5-5.0) g/dL Independent Interpretation I performed an independent interpretation of an: Ultrasound (bedside ultrasound no evidence of fluid collection) Tests considered The following testing was considered but not selected: official ultrasound or CT scan was considered but patient does not appear clinically ill Prescription Management I considered prescription management with: Pain Medication (considered narcotic pain medication but starting NSAIDs) Discharge Plan Discharge Clinical Impression: Cellulitis, Abscess of skin or subcutaneous tissue Patient Disposition: Home, Self-Care Instructions: Cellulitis (ED), Warm Compress or Soak (ED) Prescriptions: New naproxen [Naprosyn] 500 mg tablet 500 mg PO BID Qty: 20 0RF amoxicillin-pot clavulanate 875-125 mg tablet 1 tab PO BID Qty: 20 0RF No Action gabapentin 300 mg capsule 300 mg PO TID Qty: 30 0RF cyclobenzaprine 10 mg tablet 10 mg PO TID PRN (Reason: muscle spasm) Qty: 12 0RF lidocaine [Lidoderm] 5 % adhesive patch,medicated 1 patch topical DAILY Qty: 15 0RF Rx Instructions: leave on most painful area for up to 12 hrs doxycycline monohydrate 100 mg capsule 100 mg PO BID Qty: 14 0RF ibuprofen 800 mg tablet 800 mg PO Q8H PRN (Reason: pain) Qty: 14 0RF oxycodone 5 mg capsule 5 mg PO Q8H PRN (Reason: pain) Qty: 10 0RF doxycycline hyclate 100 mg tablet 100 mg PO BID 10 Days Qty: 20 0RF ibuprofen 800 mg tablet 800 mg PO Q8H PRN (Reason: pain) Qty: 14 0RF acetaminophen [Tylenol Extra Strength] 500 mg tablet 1,000 mg PO QID PRN (Reason: fever or pain) Qty: 14 0RF oxycodone 5 mg tablet 5 mg PO BID PRN (Reason: pain) Qty: 10 0RF cephalexin 500 mg capsule 500 mg PO Q12H 10 Days Qty: 20 0RF naproxen 500 mg tablet 500 mg PO BID PRN (Reason: pain) Qty: 14 0RF cyclobenzaprine 10 mg tablet 10 mg PO Q8H Qty: 14 0RF prednisone 20 mg tablet 40 mg PO DAILY 5 Days Qty: 10 0RF oxycodone 5 mg tablet 5 mg PO Q6H PRN (Reason: pain) Qty: 14 0RF Rx Instructions: Partial Fill upon patient request. fluticasone propionate [Flonase Allergy Relief] 50 mcg/actuation spray,suspension 2 spray intranasal DAILY Qty: 16 0RF Rx Instructions: administer into each nostril cyclobenzaprine 10 mg tablet 10 mg PO TID PRN (Reason: muscle spasm) Qty: 15 0RF naproxen 500 mg tablet 500 mg PO BID PRN (Reason: pain) Qty: 30 0RF prednisone 20 mg tablet 40 mg PO DAILY 5 Days Qty: 10 0RF cyclobenzaprine 5 mg tablet 10 mg PO TID PRN (Reason: muscle spasm) 10 Days Qty: 14 0RF Referrals: Allyson Gotti PA-C [Primary Care Provider] - 5 days Interventions: ED Discharge Assessment Last Done: 10/10/22 03:39 Discharge Date/Time: 10/10/22 03:40
[2022-10-10 03:29] VITALS: BP 137/73; PULSE 72; RESP 16; TEMP 37.2; O2SAT 99
[2022-10-10] MEDS: Ketorolac Tromethamine 60 MG/2 ML VIAL IM (03:34)
[2022-10-10] MEDS: Amoxicillin/Potassium Clav 875 MG TABLET PO (03:34)
== END 2022-10-10 03:40 | disposition home or self-care (01) ==
PROVIDERS: Emergency Provider Emergency Medicine; PCP Physician Assistant
DX: L03.314 Cellulitis of groin (principal); L02.214 Cutaneous abscess of groin; I10 Essential (primary) hypertension; Z79.899 Other long term (current) drug therapy
CPT/HCPCS: 36415; 80053; 85025; 96372; 99283; 99284; J1885